=== PATIENT | female | born 1995 | race Hispanic/Latino ===

== ENCOUNTER 2016-12-27 12:48 | Inpatient (IN) | payer OTHER ==
[~2016-12-27] VITALS: Ht 154.9 cm; Wt 45.7 kg
[~2016-12-27 12:48] MED LIST: Ibuprofen PO; PREN-99 PO
[2016-12-27 13:35] VITALS: BP 148/98; PULSE 78; RESP 16; O2SAT 100
[2016-12-27 14:37] LABS: MONOCYTES % (AUTO) 6.4 % (4-12); Mean Corpuscular Hemoglobin 29.1 pg (27.0-35.0)
[2016-12-27 14:40] LABS: BASOPHILS % (AUTO) 0.2 % (0-3); EOSINOPHILS % (AUTO) 1.8 % (0-5); Mean Corpuscular Volume 84.7 fL (81-100); NEUTROPHILS % (AUTO) 63.9 % (40-74); Platelet Count 78 bil/L (150-400)
--- NOTE | 2016-12-27 15:03 | ED.REPORT ---
HPI-General Illness Date of Service December 27, 2016 ED Provider: Dr. Gonzalez Acevedo M.D. A 21 year old female with a history of hypertension and anemia presents to the ED due to abnormal labs drawn yesterday. The patient was seen by her PCP for symptoms including months of headache, fatigue, tiredness, and intermittent abdominal pain. Her PCP called her today with lab results and referred her to the ED due to poor kidney function. The patient became aware than there was a problem with her kidneys a few months ago. She takes vitamins regularly but denies other daily medications. The patient denies other symptoms. Nursing Notes Stated Complaint: KIDNEY ISSUE Chief Complaint: General Complaint Nursing Notes Reviewed: Yes Allergies: Coded Allergies: No Known Allergies (Verified Allergy, Unknown, 12/27/16) Scheduled Vits #90/Iron Fum/FA ( Formula Tablet) 1 Each Tablet 1 EACH PO DAILY General Time Seen by MD: 15:03 Chief Complaint Other (Abnormal Labs) Hx Obtained From: Patient Arrived By: Walk-in Sudden in Onset?: Yes Onset Occurred: Onset unknown (Labs drawn yesterday) Symptom Duration: Since onset Location: : Abdomen: Head Quality: Aching, Painful Severity: Current: Moderate Severity: Maximum: Moderate Pertinent Negative: Relieved by nothing Recent Healthcare: Recent doctor visit Similar Sx Previous: Yes Past Medical History Past Medical History Hypertension Anemia Past Surgical History denies Smoking History Never Smoker Social History Alcohol Use: Denies alcohol use Drug Use: Denies drug use Other Social History: Occupation no work or school Ambulatory Status Independent Review of Systems + Labs indicating poor kidney function Full Review of Systems Constitutional: Reports: Fatigue, Denies: Fever Respiratory: Denies: Non-productive cough, Shortness of breath GI: Reports: Abdominal pain (Intermittent), Denies: Diarrhea, Vomiting Neurologic: Reports: Headache Complete sys rev & neg: except as marked. Physical Exam Vital Signs Vital Signs Date Time Temp Pulse Resp B/P Pulse Ox O2 Delivery O2 Flow Rate FiO2 12/27/16 13:35 36.7 78 16 148/98 100 Initial VS: Reviewed Head / Eyes: Atraumatic, Normocephalic ENT: Conjunctiva normal, No scleral icterus Neck: Supple, Full range of motion Respiratory: Breath sounds normal, Clear to auscultation, No respiratory distress Cardiovascular: Regular rate & rhythm, Heart sounds normal Skin: Warm, Dry, No cyanosis Neurologic: Alert, Oriented, Nonfocal Psychiatric: Mood/affect normal, Behavior normal, Normal thought content General/Constitutional: Awake, Alert, No acute distress Interpretation & Diagnostics US RENAL SONOGRAM: IMPRESSION: 1. Bilateral renal atrophy, cortical thinning as well as increased renal cortical echogenicity suggesting medical renal disease. No hydronephrosis is seen. Dictated by: Be Harrell RRFausto Interpreted: Rose Easley MD on 12/27/2016 at 16: 39 URINE : Negative URINE DIPSTICK: Bedside Urine Specific Clarkson * 1.000 Bedside Urine pH * 5 Bedside Urine Leukocyte Esterase * Negative Bedside Urine Nitrite * Negative Bedside Urine Protein * +++ (500) Bedside Urine Glucose * Normal Bedside Urine Ketones * Negative Bedside Urine Urobilinogen * Normal Bedside Urine Bilirubin * Negative Bedside Urine Occult Blood * ~ 250 Jose/ml Urine to Lab * Yes Lab Results Interpretation Result Diagram: 12/27/16 1433 12/27/16 1433 Test 12/27/16 14:33 12/27/16 14:34 12/27/16 15:24 White Blood Count 5.0th/mm3 (3.8-10.1) Red Blood Count 2.61mil/mm3 (3.90-5.20) Hemoglobin 7.6g/dL (12.0-15.6) Hematocrit 22.1% (35.0-46.0) Mean Corpuscular Volume 84.7fL (81-100) Mean Corpuscular Hemoglobin 29.1pg (27.0-35.0) Mean Corpuscular Hemoglobin Concent 34.4% (32.0-37.0) Red Cell Distribution Width 13.0% (12.3-15.4) Platelet Count 78bil/L (150-400) Neutrophils (%) (Auto) 63.9% (40-74) Lymphocytes (%) (Auto) 27.5% (14-46) Monocytes (%) (Auto) 6.4% (4-12) Eosinophils (%) (Auto) 1.8% (0-5) Basophils (%) (Auto) 0.2% (0-3) Sodium Level 138mEq/L (134-144) Potassium Level 5.7mEq/L (3.5-5.2) Chloride Level 100mEq/L (97-108) Carbon Dioxide Level 19mmol/L (18-29) Blood Urea Nitrogen 99mg/dL (6-20) Creatinine 6.79mg/dL (0.57-1.00) Estimat Glomerular Filtration Rate 11mL/min (>59) Glucose Level 94mg/dL (60-99) Calcium Level 7.1mg/dL (8.5-10.1) Phosphorus Level 5.8mg/dL (2.5-4.9) Total Bilirubin 0.3mg/dL (0.0-1.2) Aspartate Amino Transf (AST/SGOT) 20U/L (0-50) Alanine Aminotransferase (ALT/SGPT) 18U/L (0-32) Alkaline Phosphatase 82U/L (25-150) Total Protein 6.7g/dL (6.4-8.4) Albumin 4.1g/dL (3.4-5.0) Thyroid Stimulating Hormone (TSH) 1.820uIU/mL (0.450-4.500) Hold [place] Top Tube Received (Received) Urine Color Straw (YELLOW) Urine Appearance Hazy (CLEAR,HAZY) Urine pH 6.0 (5.0-8.0) Urine Specific Clarkson 1.010 (1.003-1.035) Urine Protein 100mg/dL (NEG,TRACE) Urine Glucose (UA) Negativemg/dL (NEGATIVE) Urine Ketones Negativemg/dL (NEGATIVE) Urine Occult Blood Moderate (NEGATIVE) Urine Nitrite Negative (NEGATIVE) Urine Bilirubin Negative (NEGATIVE) Urine Urobilinogen 0.2mg/dL (NORMAL) Urine Leukocyte Esterase Negative (NEGATIVE) Urine RBC 3-10/hpf (0-2) Urine WBC 0-5/hpf (0-5) Urine Epithelial Cells None/hpf (NONE-MOD) Urine Crystals None seen (NONE SEEN) Urine Bacteria Few/hpf (NONE-FEW) Urine Hyaline Casts None/lpf (NONE) Urine Granular Casts None seen (NONE SEEN) Urine Waxy Casts None seen (NONE SEEN) Urine Red Blood Cell Casts None seen (NONE SEEN) Urine White Blood Cell Casts None seen (NONE SEEN) Urine Mucus None seen (None Seen) Urine Trichomonas None seen (NONE SEEN) Urine Yeast None (NONE SEEN) Urinalysis Comment None Urine Culture Reflexed Not indicated Re-Eval/Medical Decision Time of Eval: 18:11 Patient Status: Condition improved Re-Evaluation/Progress Note: Dr. Cates evaluated patient. He discussed with her lab and US results, diagnosis, and plan for admit. Patient agrees with plan for care and all questions were addressed. Consultation #1: Referral / Consult Name: Everardo Taylor DO Consulted With: Nephrology Call Returned at: 16:20 Pharmacy Manager: Will see patient, Agrees with eval, Agrees with plan Consultation #2: Referral / Consult Name: Everardo Taylor DO Consulted With: Nephrology Call Returned at: 17:20 Pharmacy Manager: Agrees with eval, Agrees with plan Note: Recommends admit. Consultation #3: Referral / Consult Name: Misbah Lau MD Consulted With: Hospitalist Call Returned at: 18:09 Pharmacy Manager: Agrees with eval, Agrees with plan, Accepts admit Consultation #4: Referral / Consult Name: Anjel Hightower MD Consulted With: Hospitalist Pharmacy Manager: Accepts admit Counseled Regarding: Diagnosis, Lab results, Need for admission Discharge & Departure Primary Impression: Acute renal failure Acute renal failure type: unspecified Qualified Code: N17.9 - Acute kidney failure, unspecified Disposition: ADMITTED TO HOSPITAL Discharge Condition All VS Reviewed: Yes Condition: Improved Referrals: Myrtle Bee MD (PCP) Coronaiblorenza Attestation Portions of this note were transcribed by Danielle Gautam. I, Dr. Acevedo, personally performed the history, physical exam, and medical decision-making; I reviewed and confirmed the accuracy of the information in the transcribed note. Signed by: Katarina Gupta, 12/27/2016, 18:15 copies to: Myrtle Bee MD, Kirk H MD December 27, 2016 15:03 DANIELLE GAUTAM December 27, 2016 15:34
[2016-12-27 15:29] LABS: Phosphorus 5.8 mg/dL (2.5-4.9)
[2016-12-27 15:37] LABS: APPEARANCE,URINE HAZY (CLEAR,HAZY); COLOR,URINE STRAW (YELLOW)
[2016-12-27 15:39] LABS: OCCULT BLOOD,URINE MODERATE (NEGATIVE)
[2016-12-27 15:40] LABS: UROBILINOGEN,URINE 0.2 mg/dL (NORMAL)
--- NOTE | 2016-12-27 16:41 | DRSVH ---
PROCEDURE: US RENAL SONOGRAM INDICATIONS: renal failure TECHNIQUE: Real-time scanning was performed of the kidneys and bladder, with image documentation. COMPARISON: None. FINDINGS: Kidneys: Kidneys are normal in size. Right kidney measures 8.7 cm long; left kidney measures 8.0 cm long. Right renal cortical thickness is 0.8 cm; left renal cortical thickness is 1.0 cm. Renal cor tical echotexture is increased bilaterally. No hydronephrosis or nephrolithiasis. No suspicious marie id mass lesions. Bladder: Pre-void bladder volume is 99 mL. Post-void residual is 86 mL. Pre-void images demonstrat e no intraluminal masses or stones. On pre-void images, neither ureteral jets are noted with color D oppler interrogation. (Of note, ureteral jets may not be detectable in up to 25% of cases due to ins ufficient differences in specific gravity between ureteral and bladder urine). Miscellaneous: No free pelvic fluid. IMPRESSION: 1. Bilateral renal atrophy, cortical thinning as well as increased renal cortical echogenicity sugges ting medical renal disease. No hydronephrosis is seen. Dictated by: Be BANGURA Interpreted: Rose Easley MD on 12/27/2016 at 16:39 Transcribed by: GREGORIO on 12/27/2016 at 16:41 Approved by: Rose Easley M.D. on 12/27/2016 at 17:53
[2016-12-27] MEDS ORDERED: PREN-100 PO (17:37)
--- NOTE | 2016-12-27 18:48 | CONS ---
[address] [address] CONSULTATION REPORT PATIENT: KAELYN MCKENZIE : 1995 MR#: [id number] ADMIT: 12/27/2016 JOB ID: [id number] DATE OF SERVICE: 12/27/2016 HISTORY: The patient is a very pleasant 21-year-old, female who was sent to the emergency department for acute uremic symptoms. Renal consultation is being sought for further evaluation of her elevated BUN and creatinine. Earlier today, her physician Dr. Bee from [facility] contacted me with concern of her markedly elevated creatinine at 6.5. After discussion, I recommended that the patient be sent over here through the emergency department for further and emergent evaluation. Her last health care contact until recently was 2-1/2 years ago when she had an uncomplicated . She stated during the which she is a G1, P1, there was no history of preeclampsia, eclampsia, hypertension, or diabetes. She had a spontaneous vaginal delivery with a healthy male child. Since that time, she states that she has been doing well until several months ago. At that time, she states that she had began to have some intermittent fatigue, dyspnea on exertion, progressive anorexia, nausea without vomiting, and increasing pruritus. She was seen at [facility] several months ago and blood work from December 04 revealed a creatinine of 3.65. She was placed on metoprolol and vitamin D and was referred for renal evaluation. She was seen back at [facility] yesterday and at that time her blood work revealed a creatinine of 6.5, and our office was contacted. She denies a history of any prior medical problems or any prior renal problems. She does relate this history of longstanding progressive fatigue, anorexia, intermittent insomnia, decreased taste for food, pruritus, nausea without vomiting. She also states she has had somewhat of an ill-defined, sharp epigastric abdominal pain which is intermittent in nature and she cannot relate whether it is aggravated or relieved by anything. This is not associated with any other symptoms. She also states that she has been having considerable bruising in the last month or so and intermittent polyarthralgias, however, she denies any rash or perioral ulcerations. She has had some ill-defined sharp intercostal chest pain which is somewhat aggravated by deep inspiration. There is not an exertional component, and the pain is nonradiating. She denies any travel outside of this area for greater than 6-12 months. She does state that she takes a medication from [place] for frequent headaches, and she has taken this for a number of years. We are currently searching the database to see what this is specifically. She also states that she has frequent chills but denies any fever, jaundice, or polyuria or polydipsia. She denies any prior history of any renal problems and no history of any recent proteinuria, recurrent urinary tract infections or renal lithiasis. There is no history of any prior hepatitis. She denies any recent infections, however, she states that three months ago she had a sore throat, and took some type of antibiotic with some improvement. PAST MEDICAL HISTORY: Remarkable for recent onset hypertension and chronic kidney disease. Otherwise, she denies a history of any neurological problems, stroke, seizure, asthma, tuberculosis, rheumatic fever, hepatitis, thyroid illness, or food intolerance. PAST SURGICAL HISTORY: Unremarkable. ALLERGIES: She is not allergic to any food or any medications. SOCIAL HISTORY: She does not use alcohol, tobacco or illicit drugs. She is normally in good health and lives with her family and is able to provide for her child. CURRENT MEDICATIONS: Include metoprolol, vitamin D, and vitamins. FAMILY HISTORY: Negative for any history of any hypertension or renal disease. There is no history in the family of any lupus or rheumatoid arthritis. PHYSICAL EXAMINATION: Revealed a small, thin and pale, 21-year-old, female who was alert and oriented x3 and was able to answer questions through an foam tank laminator. Blood pressure at time of my evaluation and by my reading was 144/100 with a pulse rate of 86. HEENT examination is remarkable for pale sclerae. Cornea and conjunctivae were within normal limits as were the extraocular muscles and pupils. Funduscopic examination was unremarkable. Examination of her throat showed normal tonsillar architecture without injection, erythema, or exudate. Neck is supple without adenopathy, thyromegaly or jugular venous distention. Lungs are clear to auscultation. Heart was regular and rhythmical with a soft systolic murmur. There was no rub noted. Abdomen was soft with somewhat diminished bowel sounds. There was diffuse nonfocal tenderness to palpation which seemed to be worse in the right upper quadrant. There was no rebound, guarding, or hepatosplenomegaly. Extremities do not show any evidence of any clubbing, cyanosis, edema, or half and half nails. Skin turgor was good. There was no evidence of any rashes. LABORATORY EXAMINATION: On admission, her white count is 5.0, hemoglobin 7.6, hematocrit 22.1, platelet count is low at 78,000, differential was normal. Urinalysis showed a specific gravity 1.010, pH was 6. Tests for protein and occult blood were positive. She had 3-10 RBCs per high-power field and 0-5 WBCs per high-power field. Bacteria were not seen. Her sodium was 138, potassium 5.8, chloride of 100, bicarbonate 19, BUN and creatinine were 99 and 6.79 and calcium was 7.6 with a phosphorus of 5.8. Liver function studies were normal. I have reviewed her renal ultrasound which showed relatively normal-sized kidneys, however, there was diffuse echogenicity in both kidneys. IMPRESSION: 1. End-stage renal disease, etiology unknown. 2. Hypertension with hypertensive heart disease and hypertensive nephrosclerosis. 3. Anemia secondary to chronic kidney disease. 4. Metabolic acidosis with a type 4 renal tubular acidosis. 5. Thrombocytopenia. 6. Proteinuria with microscopic hematuria. RECOMMENDATION: I would like to get an echocardiogram on her along with a urine protein creatinine ratio, an DOMINIQUE and an Justice's TTS 13 titer for the possibility of TTP, although I doubt this. I would also like to get a sed rate, C3, C4, uric acid, and iron studies. Once again, I would like to thank you for allowing me to participate in the care of this rather unfortunate patient, I will be following her closely with you.
[2016-12-27 19:40] VITALS: BP 153/10; PULSE 74; RESP 16; O2SAT 100
[2016-12-27] MEDS ORDERED: AMLO5TAB2 PO (20:17)
[2016-12-27] MEDS ORDERED: CHOL100043 PO (20:17)
[2016-12-27 20:23] VITALS: BP 141/82; PULSE 81; RESP 18; O2SAT 100
--- NOTE | 2016-12-27 20:25 | NUR ---
Admission to [facility] Room 2005 Pt and a friend arrived to the room at approximately 2024. The pt was on the gurney and was able to independently transfer self from gurney to the bed without any issues. Pt's VSS with the exception that the pt's BP was elevated with a systolic in the 140s. Pt's skin looks healthy. Pt is Kinyarwanda speaking only.
[2016-12-27] MEDS ORDERED: Polyethylene Glycol (PEG) 17 Gm Powder PO PRN (21:10)
[2016-12-27] MEDS ORDERED: Alum-Mag Hydrox-Simeth 30 mL Suspension PO PRN (21:10)
--- NOTE | 2016-12-27 21:51 | PCM.HPMED ---
Subjective Date of Service December 27, 2016 Primary Provider: Admitting Physician: Anjel Hightower MD Primary Care Physician: Myrtle Bee MD Attending Physician: Anjel Hightower MD Chief Complaint: Headache, fatigue, tiredness and intermittent abdominal pain History of Present Illness: The patient is a 21-year-old female history of hypertension and anemia who presented to [facility] emergency department due to abnormal labs drawn yesterday the day prior to admission. The patient was seen by her primary care physician Rohit Iraheta M.D. for symptoms including months of headache, fatigue, tiredness, and intermittent abdominal pain. Her PCP called her today the day of admission with lab results and referred her to [facility] emergency department due to poor kidney function. The patient became aware that there is a problem with her kidneys a few months ago. She takes vitamins regular but denies other daily medications. However amlodipine is on her medication list as well as vitamin D3 and reportedly she is taking metoprolol in the past. Patient was evaluated in the emergency room by Dr. Gonzalez Acevedo and her BUN was 99 and creatinine was 6.79. Dr. Taylor was constant acted and he recommended that the patient be admitted to the hospital service and he would consult for nephrology consultation. Patient was therefore admitted to the hospital service for further evaluation and treatment. Review of Systems: General: Patient has been complaining of generalized malaise, headache, fatigue and intermittent abdominal pain. HEENT: Patient has a headache, patient has no diplopia, patient has no changes in vision. Patient has no problems with her ears, nose or throat. Patient has no known dental problems. Patient has no pharyngitis or history of thrush. Neck: Patient has no stiffness in the neck. Patient has no lymphadenopathy. Patient has no other problems with her neck. Pulmonary: Patient has no shortness of breath, no cough, no expectoration of sputum. Patient has no pleurisy. Patient has no chest pain. Patient has no history of asthma or COPD. Cardiovascular: Patient has no chest pain. Patient has no history of heart murmur. Patient has no palpitations. Patient has no history of myocardial infarction. Patient has no history of coronary artery disease. Patient does have a history of hypertension. Gastrointestinal: Patient has no history of hepatitis A, B or C. Patient has no history of peptic ulcer disease. Patient has no history of gastroesophageal reflux disease. Patient has no history of nausea, vomiting, or diarrhea. Patient has no history of hematemesis, hematochezia, or melena. Patient has no history of colitis. Renal: Patient has a history of known kidney problems. Genitourinary: Patient has no history of dysuria, frequency, or incontinence. Patient has no previous history of genitourinary problems. Musculoskeletal: Patient has no history of muscular skeletal problems. Neurologic: Patient has no history of stroke, no history of seizure, no history of TIA. Psychiatric: Patient has no history of psychiatric problems. The remainder of the entire review of systems was reviewed with patient and is as mentioned above otherwise negative. Allergies Coded Allergies: No Known Allergies (Verified Allergy, Unknown, 12/27/16) PMH Hypertension Anemia Kidney problems Surgical History The patient denies any surgery. Family History For family history is not available at this time. Social History Hx Alcohol Use: No Hx Substance Use: No Smoking Status: Never Smoker Living Arrangement: with Family Additional Information Patient is 1 para 1. She is and has one child. She does not currently employed and is not currently attending school. Exam Vital Signs Vital Sign - Last Date Time Temp Pulse Resp B/P Pulse Ox O2 Delivery O2 Flow Rate FiO2 12/27/16 20:23 36.9 81 18 141/82 100 Room Air Exam General: Patient appears tired and fatigued. Otherwise she is lying supine in bed in no apparent distress HEENT: Head is atraumatic and normocephalic. Eyes: Pupils are equally round and reactive to light and accommodation. Extraocular muscles are intact. Sclera are white, anicteric. Subconjunctival mucosa is pink. Ears and nose are unremarkable. Oropharynx: There is no mucosal lesions, there is no thrush, there is no pharyngitis. Neck: Is supple, there are no nodes, or masses or tenderness. Chest: Is clear to auscultation and percussion. There are no rales, rhonchi, wheezes or rubs. Heart: Rate, rhythm is regular. There is no murmur, rub or gallop. Abdomen: Good bowel sounds are present. Abdomen is soft, nontender, no organomegaly or masses were appreciated. Extremities: Are symmetrical and well perfused. There is no edema, there is no cellulitis, no rash. Neurologic: There are no focal neurological deficits. Cranial nerves II through XII are intact. There are no sensory or motor deficits. Psychiatric: Patients mood is calm and shows no sign of agitation. Genital: Deferred Rectal: Deferred Lab and Diagnostics Result Diagram: 12/27/16143212/27/161432 Assessment & Plan The patient is a pleasant 21-year-old female with history of hypertension and anemia who was sent to [facility] emergency room by her primary care physician due to a markedly elevated BUN and creatinine after patient visited her PCP complaining of months of headache, fatigue, tiredness and intermittent abdominal pain. # Acute renal failure on chronic kidney disease, present of the tendon admission and ongoing. - Etiology is uncertain, however renal disease appears to be at an end-stage - Patient has known hypertension and may have hypertensive nephrosclerosis. - Rule out toxic effects of medications that she has been taking from [facility]. - Rule out other -such as autoimmune disease - Dr. Everardo Taylor has been consulted and appreciate his time and expertise. His recommendations are as follows: "I would like to get an echocardiogram on her along with a urine protein creatinine ratio, an DOMINIQUE and an Justice's TTS 13 titer for the possibility of TTP, although I doubt this. I would also like to get a sed rate, C3, C4, uric acid, and iron studies. # Anemia of chronic kidney disease, present at the time of admission and ongoing. - Treatment as per Dr. 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 - Recommendations as per Dr. Taylor. # Headaches, general malaise, present at the time of admission and ongoing. This is likely secondary to the above. - Dr. Taylor to consider hemodialysis in a.m. Disposition: Patient will likely be here more than 2 midnights for the evaluation and the treatment of the above complicated conditions, therefore patient will be admitted as an inpatient. Pain Evaluation: Adequate Pain Control GI Prophylaxis: Not indicated VTE Prophylaxis: Sub-Q Heparin (Unfractionated) Resuscitation Status: CPR: Attempt Resuscitation Anjel Hightower MD December 27, 2016 21:51
[2016-12-28] VITALS (10 sets, daily range): BP systolic 113–136; BP diastolic 71–94; PULSE 76–87; RESP 14–18; O2SAT 80–100
[2016-12-28] MEDS: Sodium Chloride LOK Flush 10 mL Syringe IVFLUSH SCH ×4 (00:30→21:41)
[2016-12-28 03:30] LABS: Mean Corpuscular Hemoglobin 29.2 pg (27.0-35.0); Mean Corpuscular Volume 84.7 fL (81-100); NEUTROPHILS % (AUTO) 51.3 % (40-74); Platelet Count 74 bil/L (150-400)
[2016-12-28 03:31] LABS: BASOPHILS % (AUTO) 0.3 % (0-3); EOSINOPHILS % (AUTO) 3.2 % (0-5); MONOCYTES % (AUTO) 8.2 % (4-12)
[2016-12-28 03:46] LABS: Magnesium 2.2 mg/dL (1.6-2.6); Phosphorus 5.1 mg/dL (2.5-4.9)
[2016-12-28 05:09] LABS: Hepatitis A Antibody IgM Negative (Negative); Hepatitis B Core Antibody IgM Negative (Negative)
[2016-12-28] MEDS: Multivit-Miner-Folic Acid-Iron Tablet PO SCH (08:20)
[2016-12-28 13:08] LABS: RNP Antibodies <0.2 AI (0.0-0.9)
--- NOTE | 2016-12-28 13:13 | NUR ---
Social Work: Screen D: Per EMR review, pt is a 21 year old female admitted for Acute Renal Failure. Pt is [facility]. PCP is Myrtle Bee MD. NOK is Keturah Aguero, sister. Advanced directives information provided to pt as she has not yet completed them. Readmit score is low, 0/8. PATIENT ACCESS MANAGER met with pt at bedside. Sw role explained. Pt lives in [place] with family. She is I at baseline. Pt will be a permanent dialysis patient and is working with nephrology on this. Pt identifies no current discharge needs. Contact info provided on pt's board. A: Pt who is I at baseline. P: Anticipate pt to discharge home when medically stable; PATIENT ACCESS MANAGER to continue to follow if needs arise. ANUM Jenkins
--- NOTE | 2016-12-28 15:00 | PCM.PNNEPH ---
Subjective Date of Service December 28, 2016 Subjective The patient is unchanged from yesterday. She states that she rested fairly well last night and denies any worsening of her nausea, vomiting, or pruritus. I have reviewed her available labs and have discussed this with her through an historic interpreter. Ultrasound showed relatively normal sized kidneys however there was diffuse echogenicity consistent with chronic kidney disease. Echocardiogram is pending at time of this dictation. Her urine protein creatinine ratio is 5.3 consistent with 5 g of protein. However her C4 was normal. Her sedimentation rate was 63, rheumatoid factor was negative uric acid was 10.1, phosphorus 5.1, PTH was 214 function studies were normal and hepatitis profile was negative. LDH level was 357 and her haptoglobin is pending at time of this dictation. Her transferrin saturation was 21%. This morning her hemoglobin is 6.9, sodium is 138, potassium 4.8, chloride 101, bicarbonate 20, BUN and creatinine were 99 and 6.88. Exam Vital Signs Vital Sign - Last Date Time Temp Pulse Resp B/P Pulse Ox O2 Delivery O2 Flow Rate FiO2 12/28/16 13:37 37.0 80 18 136/80 100 Room Air Intake and Output 12/27/16 12/27/16 12/28/16 Cumulative From/Thru 15:00 23:00 07:00 12/27/16 13:35 - 12/28/16 05:38 Intake Total 440 ml 440 ml Output Total 500 ml 500 ml Balance -60 ml -60 ml Intake Oral 440 ml 440 ml Output Urine Total 500 ml 500 ml # Bowel Movements 0 0 Exam HEENT examination is remarkable for pale sclera. Neck is supple without adenopathy, thyromegaly, or jugular venous distention. Lungs are clear to auscultation. Heart is regular rhythmical with a soft systolic murmur. Soft without any tenderness, rebound, guarding, masses, or hepatosplenomegaly. Extremities symmetric 20 evidence of any clubbing, cyanosis, or edema. Skin turgor is good and is no evidence of any rashes. Lab and Diagnostics Result Diagram: 12/28/16 0425 12/28/16 0300 Plan Impression Impression #1 end-stage renal disease most likely secondary to some type of connective tissue disorder. #2 anemia and thrombocytopenia which may be due to an ongoing subacute hemolytic microangiopathic process versus secondary to connective tissue disorder. #3 hypertension with hypertensive heart disease and hypertensive nephrosclerosis number for nephrotic range proteinuria #5 hyperuricemia #6 secondary hyperparathyroidism due to chronic kidney disease Recommendations #1 I have had a long discussion with the patient through an historic interpreter as to the plans for initiation of dialysis. I would like to avoid any type of transfusion at this time as I do not want to sensitize her androgen system and workup for transplant. We will have our nephrology education personnel speak with her. In the meantime I will start her on allopurinol 100 mg daily Renvela 800 mg 3 times a day with meals and further recommendation based on her all remaining tests to be done. Everardo Taylor DO December 28, 2016 15:00
--- NOTE | 2016-12-28 15:11 | DRSVH ---
[facility] [address] [place] [place] [address] Echocardiogram Report Name: KAELYN MCKENZIE Study Date: 12/28/2016 Height: 61 in Hospital Exam Location: [facility] Weight: 93 lb Gender: Female BSA: 1.4 m2 : 1995 Age: 21 yrs BP: 119/75 mmHg Reason For Study: Hypertension Ordering Physician: Nataly Taylorformed By: Cathryn Spence Interpretation Summary The left ventricle is normal in size, wall thickness, and systolic function without any focal wall motion abnormalities. The ejection fraction is estimated to be 55-60%. The right ventricle is normal in size and function. The right ventricular systolic pressure is estimated at 34 mmHg assuming a right atrial pressure of 8 mm Hg. The left atrium is mildly dilated. Right atrial size is normal. There is no significant valvular heart disease. The aortic root is normal size. Procedure: A two-dimensional transthoracic echocardiogram with color flow and Doppler was performed. The study quality was technically good. There is no prior echocardiogram noted for this patient. The patient was in normal sinus rhythm during the exam. Left Ventricle: The left ventricle is normal in size, wall thickness, and systolic function without any focal wall motion abnormalities. The ejection fraction is estimated to be 55-60%. Assessment of diastolic parameters indicates normal left ventricular diastolic function and normal filling pressures. Right Ventricle: The right ventricle is normal in size and function. Atria: The left atrium is mildly dilated. Right atrial size is normal. There is no Doppler evidence for an interatrial shunt. Mitral Valve: The mitral valve is normal in structure and function. There is trace mitral regurgitation. Aortic Valve: The aortic valve is normal in structure and function. No aortic regurgitation is present. Tricuspid Valve: The tricuspid valve is normal in structure and function. There is a trace or physiologic amount of tricuspid regurgitation. The right ventricular systolic pressure is estimated at 34 mmHg assuming a right atrial pressure of 8 mm Hg. Pulmonic Valve: The pulmonic valve is normal in structure and function. There is no pulmonic valvular regurgitation. There is no significant valvular heart disease. Great Vessels: The aortic root is normal size. The ascending aorta is normal in size. The aortic arch is normal in size. The IVC is of normal diameter and collapses less than 50% with a sniff. This suggests a right atrial pressure of 8 mm Hg. Pericardium/ Pleura There is no pericardial effusion. MMode/2D Measurements & Calculations LVIDd: 4.4 cm LA dimension: 3.3 cm RA long axis LVOT diam: 1.7 cm LVIDs: 3.4 cm AoV Opening FS: 23.7 % LA A2 area: 15.3 cm RA area EPSS: 0.41 cm LA A4 area: 21.1 cm Ao root diam IVSd: 0.71 cm LA length (vol) : 13.8 cm LVPWd: 0.87 cm RA vol Aortic Jxn: 2.0 cm LA vol: 53.0 ml : 41.8 ml asc Aorta Diam LA vol index RA : 30.7 mm2 Ao Arch Diam (Prox Trans): 2.1 cm IVC diam: 1.6 cm LV cavazos. diameter/BSA LV sys. diameter/BSA RVD1 (basal) RVD2 (mid): 2.6 cm (cm/m^2): 3.2 (cm/m^2): 2.5 Doppler Measurements & Calculations Ao V2 max MV E max douglas MV E/A: 1.2 TR max douglas : 155.0 cm/sec : 102.6 cm/sec Med Peak E' Douglas : 254.9 cm/sec Ao max PG MV A max douglsa TR max PG : 9.6 mmHg : 89.1 cm/sec E/E' med: 11.6 : 26.0 mmHg Ao mean PG MV P1/2t: 72.7 msec Lat Peak E' Douglas PA V2 max : 102.9 cm/sec LVOT Max Douglas E/E' lat: 7.9 PA mean PG : 115.2 cm/sec E/e' average: 9.8 PA Accel Time MILO(I,D): 1.8 cm : 0.13 sec sev ratio MV dec time MV P1/2t max douglas Ao V2 mean LV V1 max PG : 0.25 sec : 103.5 cm/sec MVA(P1/2t): 3.0 cm2 Ao V2 VTI: 31.6 cm LV V1 VTI MILO(V,D): 1.7 cm2 : 25.2 cm PA V2 mean MILO indexed to BSA : 73.0 cm/sec (cm^2/m^2): 1.4 Reading Physician:MARCO A
--- NOTE | 2016-12-28 16:37 | NUR ---
Renal/Medication Education/Pain/Urine output Pt has been educated on medications with full time staff interpreter in room. She was instructed on Allupurinol and Sevelamar Carbonate. Renal diet information has been printed up and given to educate on appropriate food choices. Pt c/o headache and was administered 650mg PO Tylenol with results. It was discovered that pt's family had emptied the hat collecting pt's urine. Pt stated that she had voided twice "mucho" during shift today.
--- NOTE | 2016-12-28 19:45 | PCM.PNMED ---
Subjective Date of Service December 28, 2016 Subjective Patient has no new complaints. She appears a little bit brighter and more responsive today. She has no pain except her peripheral IV site in the left antecubital fossa is bothering her some. Exam Vital Signs Vital Sign - Last Date Time Temp Pulse Resp B/P Pulse Ox O2 Delivery O2 Flow Rate FiO2 12/28/16 16:59 36.8 85 16 127/83 100 Room Air Intake and Output 12/27/16 12/27/16 12/28/16 Cumulative From/Thru 15:00 23:00 07:00 12/27/16 13:35 - 12/28/16 05:38 Intake Total 440 ml 440 ml Output Total 500 ml 500 ml Balance -60 ml -60 ml Intake Oral 440 ml 440 ml Output Urine Total 500 ml 500 ml # Bowel Movements 0 0 Exam General: Patient appears more comfortable today and less fatigue. She appears brighter and in better spirits. HEENT: Head is atraumatic and normocephalic. Eyes: Pupils are equally round and reactive to light and accommodation. Extraocular muscles are intact. Sclera are white, anicteric. Subconjunctival mucosa is slightly pale. Ears and nose are unremarkable. Oropharynx: There is no mucosal lesions, there is no thrush, there is no pharyngitis. Mucosa slightly pale. Neck: Is supple, there are no nodes, or masses or tenderness. Chest: Is clear to auscultation and percussion. There are no rales, rhonchi, wheezes or rubs. Heart: Rate, rhythm is regular. There is no murmur, rub or gallop. Abdomen: Good bowel sounds are present. Abdomen is soft, nontender, no organomegaly or masses were appreciated. Extremities: Are symmetrical and well perfused. There is no edema, there is no cellulitis, no rash. Neurologic: There are no focal neurological deficits. Cranial nerves II through XII are intact. There are no sensory or motor deficits. Psychiatric: Patients mood is calm and shows no sign of agitation. Genital: Deferred Rectal: Deferred Lab and Diagnostics Result Diagram: 12/28/16 0425 12/28/16 0300 X-Rays, CTs and MRIs PROCEDURE: US RENAL SONOGRAM INDICATIONS: renal failure TECHNIQUE: Real-time scanning was performed of the kidneys and bladder, with image documentation. COMPARISON: None. FINDINGS: Kidneys: Kidneys are normal in size. Right kidney measures 8.7 cm long; left kidney measures 8.0 cm long. Right renal cortical thickness is 0.8 cm; left renal cortical thickness is 1.0 cm. Renal cortical echotexture is increased bilaterally. No hydronephrosis or nephrolithiasis. No suspicious solid mass lesions. Bladder: Pre-void bladder volume is 99 mL. Post-void residual is 86 mL. Pre- void images demonstrate no intraluminal masses or stones. On pre-void images, neither ureteral jets are noted with color Doppler interrogation. (Of note, ureteral jets may not be detectable in up to 25% of cases due to insufficient differences in specific gravity between ureteral and bladder urine). Miscellaneous: No free pelvic fluid. IMPRESSION: 1. Bilateral renal atrophy, cortical thinning as well as increased renal cortical echogenicity suggesting medical renal disease. No hydronephrosis is seen. Dictated by: Be BANGURA Interpreted: Rose Easley MD on 12/27/2016 at 16: 39 Transcribed by: GREGORIO on 12/27/2016 at 16:41 Approved by: Rose Easley M.D. on 12/27/2016 at 17:53 Cardiac Echo Impressions Echocardiogram Report Name: KAELYN MCKENZIE Study Date: 12/28/2016 Height: 61 in Hospital Exam Location: [facility] Weight: 93 lb Gender: Female BSA: 1.4 m2 : 1995 Age: 21 yrs BP: 119/75 mmHg Reason For Study: Hypertension Ordering Physician: Nataly Taylorformed By: Cathryn Spence Interpretation Summary The left ventricle is normal in size, wall thickness, and systolic function without any focal wall motion abnormalities. The ejection fraction is estimated to be 55-60%. The right ventricle is normal in size and function. The right ventricular systolic pressure is estimated at 34 mmHg assuming a right atrial pressure of 8 mm Hg. The left atrium is mildly dilated. Right atrial size is normal. There is no significant valvular heart disease. The aortic root is normal size. Assessment & Plan The patient is a pleasant 21-year-old female with history of hypertension and anemia who was sent to [facility] emergency room by her primary care physician due to a markedly elevated BUN and creatinine after patient visited her PCP complaining of months of headache, fatigue, tiredness and intermittent abdominal pain. # Acute renal failure on chronic kidney disease, present of the time admission and ongoing. - Etiology is uncertain, however renal disease appears to be at an end-stage( ESRD). - Patient has known hypertension and may have hypertensive nephrosclerosis. 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 - Rule out other -such as autoimmune disease and/or connective tissue disease - Rule out toxic effects of medications that she has been taking from [place]. This is less likely. - Dr. Everardo Taylor has been consulted and appreciate his time and expertise. # Anemia of chronic kidney disease, present at the time of admission and ongoing. -Patient no technically has pancytopenia and will need to follow with serial CBCs. Suspect this may be due to a connective tissue or autoimmune disorder. - Treatment as per Dr. 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 - Recommendations as per Dr. Taylor. # Headaches, general malaise, present at the time of admission and ongoing. This is likely secondary to the above. - Dr. Taylor to consider hemodialysis in a.m. # Secondary hyperparathyroidism due to chronic kidney disease -Renvela 800 mg by mouth 3 times a day with meals has been ordered. # Hyperuricemia secondary to above - Allopurinol 100 mg by mouth daily started. Disposition: Patient will likely be here more than 2 midnights for the evaluation and the treatment of the above complicated conditions, therefore patient will be admitted as an inpatient. Pain Evaluation: Adequate Pain Control GI Prophylaxis: Not indicated VTE Prophylaxis: Sub-Q Heparin (Unfractionated) Resuscitation Status: CPR: Attempt Resuscitation Anjel Hightower MD December 28, 2016 19:45
[2016-12-28] MEDS: Heparin 5,000 Unit/mL Inj SUBQ SCH (21:41)
[2016-12-29] VITALS (11 sets, daily range): BP systolic 116–162; BP diastolic 74–105; PULSE 73–91; RESP 16–20; O2SAT 99–100
--- NOTE | 2016-12-29 05:49 | NUR ---
Pain Pt c/o mild headache at beginning of shift; Tylenol administered with total relief upon reassessment. No further c/o pain. VSS. Pt reported having black stool during shift; no direct observation, pt instructed not to flush further output.
[2016-12-29] MEDS: Multivit-Miner-Folic Acid-Iron Tablet PO SCH (08:04)
[2016-12-29] MEDS: Heparin 5,000 Unit/mL Inj SUBQ SCH ×2 (08:30→20:30)
[2016-12-29 08:59] LABS: BASOPHILS % (AUTO) 0.2 % (0-3); EOSINOPHILS % (AUTO) 2.7 % (0-5); MONOCYTES % (AUTO) 6.6 % (4-12); Mean Corpuscular Hemoglobin 29.5 pg (27.0-35.0); Mean Corpuscular Volume 86.2 fL (81-100); NEUTROPHILS % (AUTO) 45.9 % (40-74); Platelet Count 71 bil/L (150-400)
[2016-12-29] MEDS: Sodium Chloride LOK Flush 10 mL Syringe IVFLUSH SCH ×3 (11:48→22:15)
--- NOTE | 2016-12-29 12:26 | PCM.PNNEPH ---
Subjective Date of Service December 29, 2016 Subjective The patient was seen today along with Dr. Hightower and with the ordinary seaman to assist us in my interview and discussion. Her blood pressure has ranged in the 110 to 1:30 range. Chronic feels well today and offers no complaints. She states that she slept well and not had any problems with headache, shortness of breath, or chest pain. Her appetite is good. Her echocardiogram she has an ejection fraction of 55-60% and some mild left atrial enlargement. There was no evidence of any concentric left ventricular hypertrophy or S change in the ratio. Left atrial enlargement I would be concerned about early diastolic dysfunction. This morning her sodium was 139, potassium 4.6, chloride 100, bicarbonate 18, BUN and creatinine of 111 and 7.26. Her haptoglobin level was less than 10. Peripheral smear along with Dr. Rivera and there are scattered schistocytes and helmet cells noted on the peripheral smear along with moderate spherocytes. Exam Vital Signs Vital Sign - Last Date Time Temp Pulse Resp B/P Pulse Ox O2 Delivery O2 Flow Rate FiO2 12/29/16 11:45 36.7 91 16 135/80 100 Room Air Intake and Output 12/28/16 12/28/16 12/29/16 Cumulative From/Thru 15:00 23:00 07:00 12/27/16 13:35 - 12/29/16 06:58 Intake Total 610 ml 300 ml 1350 ml Output Total 975 ml 1475 ml Balance 610 ml -675 ml -125 ml Intake Oral 610 ml 300 ml 1350 ml Output Urine Total 975 ml 1475 ml # Voids 2 2 # Bowel Movements 1 1 Exam HEENT examination was remarkable for peripheral vascular. Neck is supple without adenopathy, thyromegaly, or jugular venous distention. Lungs are clear to auscultation. Heart is regular with mechanical with a soft systolic murmur. Abdomen is soft without any tenderness or rebound guarding masses or hepatomegaly. I did not appreciate an enlarged spleen during my evaluation today. Extremities did not show any evidence of any clubbing, cyanosis, or edema. Skin turgor is good. Lab and Diagnostics Result Diagram: 12/29/16 0255 12/29/16 025 X-Rays, CTs and MRIs PROCEDURE: US RENAL SONOGRAM INDICATIONS: renal failure TECHNIQUE: Real-time scanning was performed of the kidneys and bladder, with image documentation. COMPARISON: None. FINDINGS: Kidneys: Kidneys are normal in size. Right kidney measures 8.7 cm long; left kidney measures 8.0 cm long. Right renal cortical thickness is 0.8 cm; left renal cortical thickness is 1.0 cm. Renal cortical echotexture is increased bilaterally. No hydronephrosis or nephrolithiasis. No suspicious solid mass lesions. Bladder: Pre-void bladder volume is 99 mL. Post-void residual is 86 mL. Pre- void images demonstrate no intraluminal masses or stones. On pre-void images, neither ureteral jets are noted with color Doppler interrogation. (Of note, ureteral jets may not be detectable in up to 25% of cases due to insufficient differences in specific gravity between ureteral and bladder urine). Miscellaneous: No free pelvic fluid. IMPRESSION: 1. Bilateral renal atrophy, cortical thinning as well as increased renal cortical echogenicity suggesting medical renal disease. No hydronephrosis is seen. Dictated by: Be Harrell RR Interpreted: Rose Easley MD on 12/27/2016 at 16: 39 Transcribed by: GREGORIO on 12/27/2016 at 16:41 Approved by: Rose Easley M.D. on 12/27/2016 at 17:53 Cardiac Echo Impressions Echocardiogram Report Name: KAELYN MCKENZIE Study Date: 12/28/2016 Height: 61 in Hospital Exam Location: [facility] Weight: 93 lb Gender: Female BSA: 1.4 m2 : 1995 Age: 21 yrs BP: 119/75 mmHg Reason For Study: Hypertension Ordering Physician: Nataly Taylorformed By: Cathryn Spence Interpretation Summary The left ventricle is normal in size, wall thickness, and systolic function without any focal wall motion abnormalities. The ejection fraction is estimated to be 55-60%. The right ventricle is normal in size and function. The right ventricular systolic pressure is estimated at 34 mmHg assuming a right atrial pressure of 8 mm Hg. The left atrium is mildly dilated. Right atrial size is normal. There is no significant valvular heart disease. The aortic root is normal size. Plan Impression Impression #1 end-stage renal disease dialysis dependent #2 hemolytic anemia uncertain etiology #2 mixed connective tissue disease #4 anemia secondary to hemolytic anemia and chronic kidney disease which appears to be worsening recommendations #1 go ahead and obtain a direct and indirect Radha test, osmotic fragility test, G6PD, and reticulocyte count. #2Plan for a renal bx Sunday #3 the patient is scheduled to undergo her first dialysis treatment today. 4. 2-1/2 hours on a clear dialyzer, 300 blood flow, 3 potassium, no heparin, no fluid removed. We will schedule for her dialysis treatment tomorrow. Total time spent was 50 minutes. Everardo Taylor DO December 29, 2016 12:25
[2016-12-29] MEDS ORDERED: MethylprednisoLONE Sodium Succinate 62.5 mg/mL 2 mL Inj IVPUSH ONE (12:30)
[2016-12-29] MEDS ORDERED: Acetaminophen IV 1,000 MG in IV Premix 1 EACH IV PRN (12:40)
--- NOTE | 2016-12-29 13:00 | NUR ---
Transfer to [employer] Pt transferred to lab instructor for tunnel cath placement. Report given to Johnnie MCNEILL. Pt to be transferred to [facility] for dialysis immediately after catheter placement
[2016-12-29] MEDS ORDERED: Heparin 1,000 Unit/mL 10 mL Inj ONE (13:16)
[2016-12-29] MEDS ORDERED: Heparin 10,000 Unit/1,000 mL NS Premix IV ONE (13:17)
[2016-12-29] MEDS ORDERED: fentaNYL-PF 50 mCg/mL 2 mL Inj ONE (13:17)
--- NOTE | 2016-12-29 13:27 | DRSVH ---
PROCEDURE: US ABDOMEN INDICATIONS: hemolytic anemia TECHNIQUE: Real-time scanning was performed of the abdominal and retroperitoneal organs, with image documentatio n. COMPARISON: [facility], US, US RENAL, 12/27/2016, 15:18. FINDINGS: Liver length: 13.71 cm Gallbladder Wall Thickness: 1.50 mm CHD: 1.70 mm CBD: 2.30 mm Spleen length: 8.24 cm Right kidney length: 7.58 cm Left kidney length: 7.96 cm Aorta(Proximal): 1.66 cm Aorta(Mid): 1.48 cm Aorta(Distal): 1.34 cm RCIA: 9.20 mm LCIA: 8.80 mm Liver: Liver is normal in size and homogeneous in echotexture. Gallbladder: Normal gallbladder.. Biliary ducts: Intrahepatic bile ducts are non-dilated. Extrahepatic bile duct caliber is normal. Normal is 6-7 mm or less in diameter, or 10 mm or less post-cholecystectomy. Pancreas: Visualized portions of the pancreas are sonographically normal. Spleen: Spleen is normal in size and homogeneous in echotexture. Kidneys: Atrophy of the kidneys bilaterally with increased renal cortical echogenicity. No hydroneph rosis. Aorta: Visualized aorta is normal in caliber at less than 3 cm. Iliacs: Proximal common iliac arteries are normal in caliber at less than 2.5 cm. IVC: Intrahepatic inferior vena cava is patent. Miscellaneous: No free abdominal fluid. IMPRESSION: Abnormal appearance of the kidneys redemonstrated consistent with medical renal disease. Dictated by: Be BANGURA Interpreted: Kaushik Robin MD on 12/29/2016 at 13:25 Transcribed by: LINDSEY on 12/29/2016 at 13:26 Approved by: Kaushik Robin M.D. on 12/29/2016 at 17:12
--- NOTE | 2016-12-29 13:53 | PCM.PNMED ---
Subjective Date of Service December 29, 2016 Subjective The patient was seen with an translator and interpreter and with Dr. Taylor. The patient has no new complaints. She has no shortness of breath, no fever, no chills. However she does still continue to complain of malaise and headache. Exam Vital Signs Vital Sign - Last Date Time Temp Pulse Resp B/P Pulse Ox O2 Delivery O2 Flow Rate FiO2 12/29/16 11:45 36.7 91 16 135/80 100 Room Air Intake and Output 12/28/16 12/28/16 12/29/16 Cumulative From/Thru 15:00 23:00 07:00 12/27/16 13:35 - 12/29/16 06:58 Intake Total 610 ml 300 ml 1350 ml Output Total 975 ml 1475 ml Balance 610 ml -675 ml -125 ml Intake Oral 610 ml 300 ml 1350 ml Output Urine Total 975 ml 1475 ml # Voids 2 2 # Bowel Movements 1 1 Exam General: Patient appears comfortable lying supine in bed. HEENT: Head is atraumatic and normocephalic. Eyes: Pupils are equally round and reactive to light and accommodation. Extraocular muscles are intact. Sclera are white, anicteric. Subconjunctival mucosa is slightly pale. Ears and nose are unremarkable. Oropharynx: There are no mucosal lesions, there is no thrush, there is no pharyngitis. Mucosa is slightly pale. Neck: Is supple, there are no nodes, or masses or tenderness. Chest: Is clear to auscultation and percussion. There are no rales, rhonchi, wheezes or rubs. Heart: Rate, rhythm is regular. There is no new murmur, rub or gallop. Abdomen: Good bowel sounds are present. Abdomen is soft, nontender, no organomegaly or masses were appreciated. Extremities: Are symmetrical and well perfused. There is no edema, there is no cellulitis, no rash. Neurologic: There are no focal neurological deficits. Cranial nerves II through XII are intact. There are no sensory or motor deficits. Psychiatric: Patients mood is calm and shows no sign of agitation. Genital: Deferred Rectal: Deferred Lab and Diagnostics Result Diagram: 12/29/16 0255 12/29/16 025 X-Rays, CTs and MRIs PROCEDURE: US RENAL SONOGRAM INDICATIONS: renal failure TECHNIQUE: Real-time scanning was performed of the kidneys and bladder, with image documentation. COMPARISON: None. FINDINGS: Kidneys: Kidneys are normal in size. Right kidney measures 8.7 cm long; left kidney measures 8.0 cm long. Right renal cortical thickness is 0.8 cm; left renal cortical thickness is 1.0 cm. Renal cortical echotexture is increased bilaterally. No hydronephrosis or nephrolithiasis. No suspicious solid mass lesions. Bladder: Pre-void bladder volume is 99 mL. Post-void residual is 86 mL. Pre- void images demonstrate no intraluminal masses or stones. On pre-void images, neither ureteral jets are noted with color Doppler interrogation. (Of note, ureteral jets may not be detectable in up to 25% of cases due to insufficient differences in specific gravity between ureteral and bladder urine). Miscellaneous: No free pelvic fluid. IMPRESSION: 1. Bilateral renal atrophy, cortical thinning as well as increased renal cortical echogenicity suggesting medical renal disease. No hydronephrosis is seen. Dictated by: Be BANGURA Interpreted: Rose Easley MD on 12/27/2016 at 16: 39 Transcribed by: GREGORIO on 12/27/2016 at 16:41 Approved by: Rose Easley M.D. on 12/27/2016 at 17:53 PROCEDURE: US ABDOMEN INDICATIONS: hemolytic anemia TECHNIQUE: Real-time scanning was performed of the abdominal and retroperitoneal organs, with image documentation. COMPARISON: [facility], US, US RENAL, 12/27/2016, 15:18. FINDINGS: Liver length: 13.71 cm Gallbladder Wall Thickness: 1.50 mm CHD: 1.70 mm CBD: 2.30 mm Spleen length: 8.24 cm Right kidney length: 7.58 cm Left kidney length: 7.96 cm Aorta(Proximal): 1.66 cm Aorta(Mid): 1.48 cm Aorta(Distal): 1.34 cm RCIA: 9.20 mm LCIA: 8.80 mm Liver: Liver is normal in size and homogeneous in echotexture. Gallbladder: Normal gallbladder.. Biliary ducts: Intrahepatic bile ducts are non-dilated. Extrahepatic bile duct caliber is normal. Normal is 6-7 mm or less in diameter, or 10 mm or less post-cholecystectomy. Pancreas: Visualized portions of the pancreas are sonographically normal. Spleen: Spleen is normal in size and homogeneous in echotexture. Kidneys: Atrophy of the kidneys bilaterally with increased renal cortical echogenicity. No hydronephrosis. Aorta: Visualized aorta is normal in caliber at less than 3 cm. Iliacs: Proximal common iliac arteries are normal in caliber at less than 2.5 cm. IVC: Intrahepatic inferior vena cava is patent. Miscellaneous: No free abdominal fluid. IMPRESSION: 1. Abnormal appearance of the kidneys redemonstrated consistent with medical renal disease. Dictated by: Be BANGURA Interpreted: Kaushik Robin MD on 12/29/2016 at 13 :25 Transcribed by: LINDSEY on 12/29/2016 at 13:26 Cardiac Echo Impressions Echocardiogram Report Name: KAELYN MCKENZIE Study Date: 12/28/2016 Height: 61 in Hospital Exam Location: [facility] Weight: 93 lb Gender: Female BSA: 1.4 m2 : 1995 Age: 21 yrs BP: 119/75 mmHg Reason For Study: Hypertension Ordering Physician: Nataly Taylorformed By: Cathryn Spence Interpretation Summary The left ventricle is normal in size, wall thickness, and systolic function without any focal wall motion abnormalities. The ejection fraction is estimated to be 55-60%. The right ventricle is normal in size and function. The right ventricular systolic pressure is estimated at 34 mmHg assuming a right atrial pressure of 8 mm Hg. The left atrium is mildly dilated. Right atrial size is normal. There is no significant valvular heart disease. The aortic root is normal size. Assessment & Plan The patient is a pleasant 21-year-old female with history of hypertension and anemia who was sent to [facility] emergency room by her primary care physician due to a markedly elevated BUN and creatinine after patient visited her PCP complaining of months of headache, fatigue, tiredness and intermittent abdominal pain. # Acute renal failure on chronic kidney disease, present of the time admission and ongoing. - Etiology is uncertain, however renal disease appears to be at an end-stage( ESRD). - Patient has known hypertension and may have hypertensive nephrosclerosis. 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 - Rule out other -such as autoimmune disease and/or connective tissue disease. The patient's DOMINIQUE is positive. However, is nonspecific in nature. - Rule out toxic effects of medications that she has been taking from [place]. This is less likely. - Dr. Everardo Taylor has been consulted and appreciate his time and expertise. - Plan for tunneled hemodialysis catheter placement today and patient is to begin hemodialysis today. # Hemolytic Anemia in addition to anemia of chronic kidney disease, present at the time of admission and ongoing. -Patient now technically has pancytopenia and will need to follow with serial CBCs. -We will consider formal hematology consultation -Suspect this may be due to a connective tissue or autoimmune disorder. # Metabolic acidosis with a type 4 renal tubular acidosis, present of the time of admission and ongoing.. - Recommendations as per Dr. Taylor. # Headaches, general malaise, present at the time of admission and ongoing. This is likely secondary to the above. - Dr. Taylor to begin hemodialysis today - As patient is nothing by mouth this time will give IV Tylenol. # Secondary hyperparathyroidism due to chronic kidney disease -Renvela 800 mg by mouth 3 times a day with meals has been ordered. # Hyperuricemia secondary to above - Allopurinol 100 mg by mouth daily started. Disposition: Patient will likely be here more than 2 midnights for the evaluation and the treatment of the above complicated conditions, therefore patient will be admitted as an inpatient. Pain Evaluation: Adequate Pain Control GI Prophylaxis: Not indicated VTE Prophylaxis: Sub-Q Heparin (Unfractionated) Resuscitation Status: CPR: Attempt Resuscitation Anjel Hightower MD December 29, 2016 13:53
--- NOTE | 2016-12-29 14:45 | NUR ---
Pt arrived to [facility]: Pt arrived to [facility], for dialysis, after tunnel cath placement from [facility]. Pt appears stable at time of arrival. Pt is to be on tele. Tel removed while at procedure but currently back on. quality lab technician aware of transfer. Report obtained from Demi MCNEILL from [facility]. Addendum: 12/29/16 at 1510 by TRINIDAD KITCHEN RN Pt very sleepy but easily roused by verbal instructions. Pt has reinsurance claims analyst at bedside. Tele monitor placed back on and pt is SR @73.
--- NOTE | 2016-12-29 14:47 | NUR ---
RIKKI POST TUNNEL CATH PT RECEIVED FROM MANAGING PARTNER AT 1405. RIGHT UPPER CHEST TUNNEL CATH IN PLACE. SLIGHT BLEEDING/OOZING NOTED TO [facility]. HEALTH OCCUPATIONS TEACHER HELD PRESSURE X5MIN. PT AND HER NURSING CARE WERE TRANSFERRED TO [facility] FOR KD AT 1440. REPORT GIVEN TO EZE MCNEILL AND TRINIDAD MCNEILL.
[2016-12-29] MEDS: Ondansetron 2 mg/mL 2 mL Inj IVPUSH PRN (15:30)
[2016-12-29] MEDS ORDERED: CeFAZolin 1 Gm/50 mL D5W Duplex Bag IV ONE (16:19)
--- NOTE | 2016-12-29 16:52 | NUR ---
Dialysis note: S/P catheter placement 2 1/2 hours tx Zero net UF Right catheter, dsg soaked w/ blood, oozing from the exit site, dsg changed, sutures intact; sandbag applied during tx Pls see DTR for VS details Qb 250 No heparin given O2 @ 2L via NC on during tx PRN Zofran 4 mg IV given for nausea Tolerated tx, slept at intervals Catheter flushed, heparin dwelled and secured Stable condition at end of tx Report given to Sharlene MCNEILL
[2016-12-29] MEDS ORDERED: DESMOPRESSIN IV ONE (17:00)
[2016-12-29] MEDS ORDERED: SODIUM CHLORIDE 0.9% IV ONE (17:00)
--- NOTE | 2016-12-29 19:51 | NUR ---
Transfer to [facility] Pt transferred back to [facility] room 2005 by bed. Pt to have Desmopressin upon return for bleeding per report from CHARITO Su. Upon return pt was tearful stating through seismic interpreter that she has level 10 pain using Rosas/Rose face scale. pt administered 650mg Tylenol for chest pain and headache.
[2016-12-30] VITALS (11 sets, daily range): BP systolic 111–131; BP diastolic 68–83; PULSE 70–107; RESP 15–18; O2SAT 96–100
[2016-12-30] MEDS: HYDROmorphone 0.5 mg/0.5 mL iSecure Syringe IVPUSH PRN ×3 (00:09→17:37)
--- NOTE | 2016-12-30 00:22 | NUR ---
catheter dressing: The dressing was completely saturated with blood and the cath site has been oozing since the cath was put in approximately 10 hours ago. Dressing removed, compression applied with sterile 4 x 4, cleaned with chloroprep. No obvious sign of bleeding but the pts gown has needed to be changed x 2. CHG dressing applied, clean 4x4 added and secured with stretched microfoam tape to add compression. 5 lb bag put on and gave floor RN instructions to check in 45 min and change weight to 2 lbs if there is no bleeding noticed.
[2016-12-30 03:43] LABS: BASOPHILS % (AUTO) 0 % (0-3); EOSINOPHILS % (AUTO) 0 % (0-5); MONOCYTES % (AUTO) 1.4 % (4-12); Mean Corpuscular Hemoglobin 29.7 pg (27.0-35.0); Mean Corpuscular Volume 86.3 fL (81-100); NEUTROPHILS % (AUTO) 87.7 % (40-74); Platelet Count 62 bil/L (150-400)
[2016-12-30 03:58] LABS: Magnesium 1.6 mg/dL (1.6-2.6)
--- NOTE | 2016-12-30 05:31 | NUR ---
Tunnel Catheter Pt c/o significant pain to catheter site at beginning of shift; Tylenol administered per pt request. Pt refused any stronger pain medications at the time. Catheter site oozing; hospital gown changed x1 by PERFECT BINDER OPERATOR. Upon reassessment, pt reported pain did not improve after medication, and drainage noted to new gown. Catheter site reinspected, dressing was saturated with blood and sanguineous drainage down R breast tissue. Site tender to touch, swelling noted to catheter insertion area. Charge nurse consulted and paged. Dilaudid order obtained for pain; 0.25mg administered IVP with relief upon reassessment. Dialysis nurse on floor at time changed dressing, applied foam tape with gauze and pressure; 5lb sandbag placed on chest. Pt instructed to leave in place. At approx. 0200, 5lb sandbag switched to 2lb, site inspection revealed no further bleeding. Site tender to touch. Pt able to rest otherwise, VSS, tele SR 90s-100s.
--- NOTE | 2016-12-30 08:37 | NUR ---
NUTRITION ASSESSMENT: ASSESS:21 YO female admitted with acute on chronic renal failure, end-stage status of unknown etiology. Nephrology starting dialysis today; hematology consult pending. PMHx:Chronic renal disease, HTN, anemia. DIET:Renal. PO intake 75% - 100% all trays. LABS: Reviewed. Chloride 93, BUN 42, Cr 4.66, Glu 159, Ca 7.3, Phos 6.0. MEDICATIONS: Reviewed. Vitamin D3, MVI. NUTRITION FOCUSED PHYSICAL ASSESSMENT: GI symptoms / stool: BM x 2 (12/29).Surjit: 19. Skin Integrity: No issues reported. ANTHROPOMETRICS: Current Wt: 42.5 kgBMI: 17.0 kg/m2. Admit weight: 43.5 kg IBW: 47.7 kg (89% IBW) There has been no weight loss noted in admission history, despite low BMI. ESTIMATED NEEDS (NEW DIALYSIS): Calories: 1275 - 1488 kcal (30 - 35 kcal / kg BW) Protein: 51 - 85 g protein ( 1.2 - 2.0 g/ kg BW) Fluid: Approx. 1063 mL (25 mL / kg BW) NUTRITION DIAGNOSIS: 1)Increased nutrient needs related to requirement for dialysis for end-stage renal disease, as evidenced by placement of dialysis catheter, dialysis initiated today. INTERVENTION: 1) Will add Nepro renal supplement to lunch tray. MONITOR/EVALUATE: Diet tolerance, PO intake, labs, GI/nutrition status. Follow up per moderate nutrition risk guidelines.
--- NOTE | 2016-12-30 08:39 | NUR ---
Room transfer Patient arrived in bed from [facility] for dialysis. Mother accompanied patient. environmental health technician notified of transfer per report, from Daxa Bishop RN.
--- NOTE | 2016-12-30 12:20 | NUR ---
Dialysis note: 3 hours tx 1800 ml net UF Right catheter, dsg dry and intact Pls see DTR for VS details Qb 350 No heparin given O2 @ 2L via NC on during tx PRN Dilaudid 2 mg IV given for pain Treatment stable until return of blood, pt had some N/V but felt better right away after blood completely returned Catheter flushed, heparin dwelled and secured Report given to Yumiko MCNEILL and Roxy MCNEILL
[2016-12-30] MEDS: Heparin 5,000 Unit/mL Inj SUBQ SCH ×2 (12:33→22:23)
[2016-12-30] MEDS: Ondansetron 2 mg/mL 2 mL Inj IVPUSH PRN ×3 (12:34→22:34)
--- NOTE | 2016-12-30 12:35 | NUR ---
Back to [facility] Patient transported back to room 2006 after completing dialysis. Report called by college sports coachSusan. Received pain medication at beginning of dialysis, which was effective. Denies further pain. Mom at bedside throughout treatment. Western Felt Hat Blocker on stick used for communicating needs.
[2016-12-30] MEDS: Multivit-Miner-Folic Acid-Iron Tablet PO SCH (12:39)
[2016-12-30] MEDS: Sodium Chloride LOK Flush 10 mL Syringe IVFLUSH SCH ×3 (12:40→22:23)
[2016-12-30] MEDS ORDERED: Desmopressin Inj 21 MCG in 0.9% Sodium Chloride 50 ML IV ONE (12:50)
--- NOTE | 2016-12-30 13:01 | PCM.PNNEPH ---
Subjective Date of Service December 30, 2016 Subjective The patient tolerated her tunneled catheter placement and first dialysis treatment without significant problems other than some bleeding. She denies any headache, chest pain, shortness of breath, nausea or vomiting. She was seen today with help via an japanese interpreter. Her hemoglobin has dropped once again today to 6.3 with a dropping platelet count of 67,000. Much of the studies from yesterday namely her G6PD level, cough, cold agglutinin, and osmotic fragility are pending at time of this dictation. I have had a lengthy discussion with the patient and her mother via the japanese interpreter line for permission to do a transfusion of 2 units of packed red blood cells. I will also explained the potential risks and benefit of a percutaneous renal biopsy. I have gone ahead after receiving the permission for both the blood transfusion in the renal biopsy have ordered the renal biopsy to be done on Sunday. Abdominal ultrasound did not show any evidence of any splenomegaly. Exam Vital Signs Vital Sign - Last Date Time Temp Pulse Resp B/P Pulse Ox O2 Delivery O2 Flow Rate FiO2 12/30/16 12:34 37.2 92 18 121/68 97 Room Air Intake and Output 12/29/16 12/29/16 12/30/16 Cumulative From/Thru 15:00 23:00 07:00 12/27/16 13:35 - 12/30/16 06:10 Intake Total 233 ml 400 ml 1983 ml Output Total 200 ml 250 ml 1925 ml Balance 33 ml 150 ml 58 ml Intake Oral 0 ml 150 ml 1500 ml IV Total 233 ml 250 ml 483 ml Output Urine Total 200 ml 250 ml 1925 ml Ultrafiltrate 0 ml 0 ml # Voids 2 # Bowel Movements 1 2 Exam HEENT examination is remarkable for pale sclera and sallow complexion. Neck is supple without adenopathy, thyromegaly, or jugular venous distention. Clear to auscultation. Heart is regular and rhythmical with a soft systolic murmur. Abdomen is soft without any tenderness, rebound, guarding, masses, or hepatosplenomegaly. Extremities do not show any evidence of any clubbing, cyanosis, or edema. Skin turgor is good and there is no evidence of any rashes. Lab and Diagnostics Result Diagram: 12/30/16 0325 12/30/16 0325 X-Rays, CTs and MRIs PROCEDURE: US RENAL SONOGRAM INDICATIONS: renal failure TECHNIQUE: Real-time scanning was performed of the kidneys and bladder, with image documentation. COMPARISON: None. FINDINGS: Kidneys: Kidneys are normal in size. Right kidney measures 8.7 cm long; left kidney measures 8.0 cm long. Right renal cortical thickness is 0.8 cm; left renal cortical thickness is 1.0 cm. Renal cortical echotexture is increased bilaterally. No hydronephrosis or nephrolithiasis. No suspicious solid mass lesions. Bladder: Pre-void bladder volume is 99 mL. Post-void residual is 86 mL. Pre- void images demonstrate no intraluminal masses or stones. On pre-void images, neither ureteral jets are noted with color Doppler interrogation. (Of note, ureteral jets may not be detectable in up to 25% of cases due to insufficient differences in specific gravity between ureteral and bladder urine). Miscellaneous: No free pelvic fluid. IMPRESSION: 1. Bilateral renal atrophy, cortical thinning as well as increased renal cortical echogenicity suggesting medical renal disease. No hydronephrosis is seen. Dictated by: Be BANGURA Interpreted: Rose Easley MD on 12/27/2016 at 16: 39 Transcribed by: GREGORIO on 12/27/2016 at 16:41 Approved by: Rose Easley M.D. on 12/27/2016 at 17:53 PROCEDURE: US ABDOMEN INDICATIONS: hemolytic anemia TECHNIQUE: Real-time scanning was performed of the abdominal and retroperitoneal organs, with image documentation. COMPARISON: [facility], US, US RENAL, 12/27/2016, 15:18. FINDINGS: Liver length: 13.71 cm Gallbladder Wall Thickness: 1.50 mm CHD: 1.70 mm CBD: 2.30 mm Spleen length: 8.24 cm Right kidney length: 7.58 cm Left kidney length: 7.96 cm Aorta(Proximal): 1.66 cm Aorta(Mid): 1.48 cm Aorta(Distal): 1.34 cm RCIA: 9.20 mm LCIA: 8.80 mm Liver: Liver is normal in size and homogeneous in echotexture. Gallbladder: Normal gallbladder.. Biliary ducts: Intrahepatic bile ducts are non-dilated. Extrahepatic bile duct caliber is normal. Normal is 6-7 mm or less in diameter, or 10 mm or less post-cholecystectomy. Pancreas: Visualized portions of the pancreas are sonographically normal. Spleen: Spleen is normal in size and homogeneous in echotexture. Kidneys: Atrophy of the kidneys bilaterally with increased renal cortical echogenicity. No hydronephrosis. Aorta: Visualized aorta is normal in caliber at less than 3 cm. Iliacs: Proximal common iliac arteries are normal in caliber at less than 2.5 cm. IVC: Intrahepatic inferior vena cava is patent. Miscellaneous: No free abdominal fluid. IMPRESSION: 1. Abnormal appearance of the kidneys redemonstrated consistent with medical renal disease. Dictated by: Be BANGURA Interpreted: Kaushik Robin MD on 12/29/2016 at 13 :25 Transcribed by: LINDSEY on 12/29/2016 at 13:26 Cardiac Echo Impressions Echocardiogram Report Name: KAELYN MCKENZIE Study Date: 12/28/2016 Height: 61 in Hospital Exam Location: [facility] Weight: 93 lb Gender: Female BSA: 1.4 m2 : 1995 Age: 21 yrs BP: 119/75 mmHg Reason For Study: Hypertension Ordering Physician: Nataly Taylorformed By: Cathryn Spence Interpretation Summary The left ventricle is normal in size, wall thickness, and systolic function without any focal wall motion abnormalities. The ejection fraction is estimated to be 55-60%. The right ventricle is normal in size and function. The right ventricular systolic pressure is estimated at 34 mmHg assuming a right atrial pressure of 8 mm Hg. The left atrium is mildly dilated. Right atrial size is normal. There is no significant valvular heart disease. The aortic root is normal size. Plan Impression Impression #1 end-stage renal disease #2 hemolytic anemia #3 mixed connective tissue disease #4 acute anemia and thrombocytopenia. #5 hypertension with hypertensive heart disease and hypertensive nephrosclerosis. 6 nephrotic range proteinuria. Recommendations #1 patient is to be dialyzed today for 3-1/2 hours on a dialyzer , 2 potassium bath, no heparin, 2 units of packed red blood cells to be given and we will attempt to take off 0.5-1 we will fluid. I will also write for Solu -Medrol 125 mg IV every 12 hours leading up to her biopsy. I would also like to give her an additional dose of 21 g of DDAVP. Total time spent in the care of this patient home for 15 minutes. Everardo Taylor DO December 30, 2016 13:01
--- NOTE | 2016-12-30 13:17 | CONS ---
[address] [address] CONSULTATION REPORT PATIENT: KAELYN MCKENZIE : 1995 MR#: [id number] ADMIT: 12/27/2016 JOB ID: [id number] DATE OF SERVICE: 12/30/2016 HISTORY OF PRESENT ILLNESS: This patient is a 21-year-old woman, hospitalized with hemolytic anemia and renal failure. 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 At that time, she had a normal white cell count of 7.9 but was noted to have a decrease in hemoglobin and hematocrit of 9.9 and 29.6, respectively, with a normal MCV of 93.7, and MCHC of 33.4. Platelets were slightly decreased between 100 and 124,000. Repeat laboratory studies in May 2015 were similar. She is generally followed by Dr. Myrtle Bee at the [facility]. She was seen on December 27, 2016 with complaints of progressive fatigue, anorexia, nausea and pruritus. She also notes a sore throat and recent antibiotic treatment, although she is not sure what antibiotic she was prescribed. She is extremely weak and fatigued. Dr. Bee obtained laboratory studies that included highly elevated creatinine of 6.5, and she was referred to the [facility] Emergency Department for further evaluation. Note that kidney function in May 2015, included a BUN of 30 with creatinine 0.99, completely normal. At admit, her BUN was 99 with a creatinine of 6.79. She had anemia with a hemoglobin of 7.6 and hematocrit 22.1%, MCV 84.7 and MCHC 34.4. Platelets were decreased at 78,000. Her sedimentation rate was highly elevated at 66. She had normal iron studies. Liver function tests were also within normal limits. She had normal coagulation parameters. Urine was negative for nitrite but had moderate occult blood. Leukocyte esterase was negative. She was found to have a haptoglobin less than 10, consistent with intravascular hemolysis, or severe extravascular hemolysis. She had a dialysis catheter placed and is starting renal dialysis. She is quite weak. She denies any acute shortness of breath at this time. She has been afebrile throughout her hospitalization. PAST MEDICAL HISTORY: with a healthy 2-1/2-year-old son. No other significant past medical history. ALLERGIES: No known drug allergies or medication allergies. CURRENT MEDICATIONS: 1. Hydromorphone 0.25-0.5 mg IV p.r.n. 2. Cefazolin 1 g IV administered December 29. 3. Tylenol p.r.n. 4. Heparin 5000 units subcu twice daily. 5. Renvela 800 mg p.o. t.i.d. 6. Allopurinol 100 mg p.o. daily. 7. Vitamin D3 1000 units p.o. daily. 8. vitamins one tablet daily. 9. Ondansetron 4 mg IV p.r.n. 10. Senokot p.r.n. 11. MiraLAX p.r.n. FAMILY HISTORY: The patient is not aware of any familial blood disorders. SOCIAL HISTORY AND HABITS: The patient lives with family in [place]. She has a 2-1/2-year-old son. She is a nonsmoker, nondrinker. REVIEW OF SYSTEMS: She is very fatigued. No acute change in vision or hearing. She has had a sore throat. She denies any fevers or sweats. She has shortness of breath, primarily dyspnea on exertion. She notes the chest pain, which she attributes to her dialysis catheter. She has had nausea with limited oral intake. No vomiting. She has had rare loose stools, none during the hospitalization. She denies any blood per rectum. Urine has rarely had dark color, but she has not noted any blood. She denies any unusual bruising. She denies any acute arthritic concerns. Remaining review of systems is unremarkable. PHYSICAL EXAMINATION: This is a pleasant, young woman who appears quite fatigued. Vitals: T 37.0, P 70, R 16, BP 126/72. Height 154.94 cm, weight 93 pounds (42.5 kg). HEENT: Pupils slightly constricted. Extraocular muscles intact. Sclerae anicteric. Conjunctiva pale. Mucous membranes. Mucous membranes moist. No oral lesions. No erythema or exudate in the oropharynx. Nodes: No adenopathy in the neck or axilla. Chest: Clear throughout. No wheezes or crackles. Cardiac exam: Regular rate and rhythm with normal S1, S2. A I/ systolic ejection murmur across the precordium. Abdomen: Soft, nontender. Normoactive bowel tones. No splenomegaly or masses. Extremities: No edema. 2+ distal pulses. No calf tenderness. No cyanosis or clubbing. No petechiae or ecchymoses. Neuro: Alert and cooperative. Communication appears normal through the iron plastic bullet maker. Mild generalized weakness but no gross focal deficits. LABORATORY DATA: WBC 4.4, hemoglobin 6.4, hematocrit 18.7%, MCV 86, MCHC 34.2, platelets 71,000. Smear - occasional schistocytes and numerous small spherocytes. Sed rate 66 (normal less than 32) reticulocyte count 1.2%, haptoglobin less than 10. Sodium 134, potassium 4.7, BUN 42, creatinine 4.66 (post dialysis). Glucose 159. Calcium 7.3, albumin 3.8, phosphorus 6.0. AST 14, ALT 11, alkaline phosphatase. B12 pending. Folate pending. TSH 1.82. Iron 61. TIBC 217%. Saturation 28%. PT 10.7, INR 1.0, PTT 27.6. VEFPYS39 activity-pending. Urine: Yellow-straw with moderate occult blood, but no significant urinary red blood cells. Rheumatoid factor less than 10. DOMINIQUE-positive with RO antibody 3.1 (normal less than 0.9). Complement C3 of 71 (normal 82-167). Complement C4 of 28 (normal 14 of 44). Hepatitis screen negative for hepatitis A, B, and C. Parvovirus B19 testing-pending. ASSESSMENT AND PLAN: Radha - negative hemolytic anemia: Patient's direct antiglobulin (Radha) test was negative, which makes it far less likely that this is an autoimmune process. However, if the testing described below is negative, then a super-sensitive MISHEL test can detect few rare cases of autoimmune hemolytic anemia. More likely, the current findings fall into categories such as hereditary disease, infections, vitamin deficiencies, and certain thrombotic microangiopathies such as TTP, atypical HUS, and Shiga toxin-producing E. coli HUS. As for hereditary conditions, test for spherocytosis with osmotic fragility testing. There are numerous small spherocytes seen on her smear. More commonly these patients would have an elevated MCHC, which she does not exhibit. G6PD testing could evaluate for this hereditary condition, in which patients have a significant hemolysis with oxidative stress. However, this is an X-linked recessive trade, and rarely affects females. Hemoglobin electrophoresis can evaluate for evidence of thalassemia, which can be associated with a non-immune hemolytic anemia. Doubt that this is sickle cell disease in this patient as no sickle cells were seen on the smear and she has an intact spleen. Infectious causes that have a negative MISHEL can include a mycoplasma and parvovirus B19. Parvovirus in particular is a significant concern, as it is frequently associated with a low reticulocyte count, as seen in this patient. PCR testing for infectious exposure has been requested. Nutritional deficiencies of B12 and folate can lead to a Radha-negative hemolytic anemia, and will be tested for. These patients should be on increased folate replacement. Rare cases of copper deficiency can present with similar findings. The thrombotic microangiopathies such as a TTP, Shiga toxin-producing E. coli-HUS and atypical HUS should all be evaluated. [id number] and stool testing for Shiga testing are in process. If [id number] activity is less than 5%, then this would be consistent with TTP, which can be due to congenital deficiency, or development of antibodies against [id number]. If Shiga testing is positive, then that would make the diagnosis of Shiga toxin-producing E. coli-HUS. If Shiga testing is negative and [id number] activity is greater than 5%, then findings would be consistent with an atypical HUS. Finally, consider paroxysmal nocturnal hemoglobinuria. These patients have a Radha negative hemolytic anemia that can also be frequently associated with an increased risk of thrombosis. Send samples for flow cytometry to check for GPI anchor proteins. Avoid cephalosporins and quinolones which can worsen hemolytic anemia and continue to monitor closely. Agree with dialysis recommendations per Dr. Tayolr. Any transfusion support should use washed red blood cells due to concerns of atypical hemolytic uremic syndrome, and blood products should be irradiated as well, as this patient is a potential future renal transplant candidate. I would have a threshold of hemoglobin less than 7/hematocrit less than 21% for ongoing transfusion support. Thank you very much for allowing us to participate in your patient's care.
--- NOTE | 2016-12-30 16:03 | PCM.PNMED ---
Subjective Date of Service December 30, 2016 Subjective The patient is a pleasant 21-year-old female with history of hypertension and anemia who was sent to [facility] emergency room by her primary care physician due to a markedly elevated BUN and creatinine after patient visited her PCP complaining of months of headache, fatigue, tiredness and intermittent abdominal pain. Patient is complaining of generalized weakness, fatigue, her hemoglobin decreased 6.4 . She had hemodialysis today. She tolerated it well. Exam Vital Signs Vital Sign - Last Date Time Temp Pulse Resp B/P Pulse Ox O2 Delivery O2 Flow Rate FiO2 12/30/16 12:34 37.2 92 18 121/68 97 Room Air Intake and Output 12/29/16 12/29/16 12/30/16 Cumulative From/Thru 14:59 22:59 06:59 12/27/16 13:35 - 12/30/16 06:10 Intake Total 233 ml 400 ml 1983 ml Output Total 200 ml 250 ml 1925 ml Balance 33 ml 150 ml 58 ml Intake Oral 0 ml 150 ml 1500 ml IV Total 233 ml 250 ml 483 ml Output Urine Total 200 ml 250 ml 1925 ml Ultrafiltrate 0 ml 0 ml # Voids 2 # Bowel Movements 1 2 Exam PHYSICAL EXAM: GENERAL: Alert, weak, moderate distress, cooperative HEAD: atraumatic, normocephalic, no bruises. EYES: MARY, EOMI, anicteric, able to fully open and close eyelids SKIN: Skin color normal, turgor normal/decreased. No visible rashes or lesions. EAR, NOSE, MOUTH, THROAT: Lips, oral mucosa, tongue gums, oropharynx are moist , pink, no lesions. Ears normal appearance, no lesions. NECK: no jugulovenous distention, no carotid bruits, carotid pulse normal contour, No carotid bruit, supple, no enlarged lymph nodes appreciated; ROM normal. RESPIRATORY: Lungs clear to auscultation. Good diaphragmatic excursion. Normal percussion sound. CARDIAC: normal S1 and S2; no rubs, murmurs, or gallops; regular rate and rhythm ABDOMEN: Abdomen soft, non-tender. BS normal. No masses or organomegaly. MUSCULOSKELETAL: ROM full, muscles are not tender EXTREMITIES:no pitting edema in LE, no deformities, clubbing or skin discoloration. NEURO: Alert, oriented X3 , Sensation grossly intact., Cranial nerves II-XII intact, Grossly normal motor function. PULSES: 2+ radial, 2+ posterial tibial, 2+ dorsalis pedis, 2+ carotid REVIEW OF SYSTEMS: GENERAL: + malaise, no fevers., SEE HPI HEENT: Negative for frequent or significant headaches, No changes in hearing or vision, no nose bleeds or other nasal problems NECK: Negative for lumps, goiter, pain and significant neck swelling All other reviewed and negative other than HPI. IVs and Medications Medications Reviewed: Medications were reviewed in detail Lab and Diagnostics Result Diagram: 12/30/16 1430 12/30/16 0325 X-Rays, CTs and MRIs PROCEDURE: US RENAL SONOGRAM INDICATIONS: renal failure TECHNIQUE: Real-time scanning was performed of the kidneys and bladder, with image documentation. COMPARISON: None. FINDINGS: Kidneys: Kidneys are normal in size. Right kidney measures 8.7 cm long; left kidney measures 8.0 cm long. Right renal cortical thickness is 0.8 cm; left renal cortical thickness is 1.0 cm. Renal cortical echotexture is increased bilaterally. No hydronephrosis or nephrolithiasis. No suspicious solid mass lesions. Bladder: Pre-void bladder volume is 99 mL. Post-void residual is 86 mL. Pre- void images demonstrate no intraluminal masses or stones. On pre-void images, neither ureteral jets are noted with color Doppler interrogation. (Of note, ureteral jets may not be detectable in up to 25% of cases due to insufficient differences in specific gravity between ureteral and bladder urine). Miscellaneous: No free pelvic fluid. IMPRESSION: 1. Bilateral renal atrophy, cortical thinning as well as increased renal cortical echogenicity suggesting medical renal disease. No hydronephrosis is seen. Dictated by: Be Harrell [facility] Interpreted: Rose Easley MD on 12/27/2016 at 16: 39 Transcribed by: GREGORIO on 12/27/2016 at 16:41 Approved by: Rose Easley M.D. on 12/27/2016 at 17:53 PROCEDURE: US ABDOMEN INDICATIONS: hemolytic anemia TECHNIQUE: Real-time scanning was performed of the abdominal and retroperitoneal organs, with image documentation. COMPARISON: [facility], US, US RENAL, 12/27/2016, 15:18. FINDINGS: Liver length: 13.71 cm Gallbladder Wall Thickness: 1.50 mm CHD: 1.70 mm CBD: 2.30 mm Spleen length: 8.24 cm Right kidney length: 7.58 cm Left kidney length: 7.96 cm Aorta(Proximal): 1.66 cm Aorta(Mid): 1.48 cm Aorta(Distal): 1.34 cm RCIA: 9.20 mm LCIA: 8.80 mm Liver: Liver is normal in size and homogeneous in echotexture. Gallbladder: Normal gallbladder.. Biliary ducts: Intrahepatic bile ducts are non-dilated. Extrahepatic bile duct caliber is normal. Normal is 6-7 mm or less in diameter, or 10 mm or less post-cholecystectomy. Pancreas: Visualized portions of the pancreas are sonographically normal. Spleen: Spleen is normal in size and homogeneous in echotexture. Kidneys: Atrophy of the kidneys bilaterally with increased renal cortical echogenicity. No hydronephrosis. Aorta: Visualized aorta is normal in caliber at less than 3 cm. Iliacs: Proximal common iliac arteries are normal in caliber at less than 2.5 cm. IVC: Intrahepatic inferior vena cava is patent. Miscellaneous: No free abdominal fluid. IMPRESSION: 1. Abnormal appearance of the kidneys redemonstrated consistent with medical renal disease. Dictated by: Be Harrell RRFausto Interpreted: Kaushik Robin MD on 12/29/2016 at 13 :25 Transcribed by: LINDSEY on 12/29/2016 at 13:26 Cardiac Echo Impressions Echocardiogram Report Name: KAELYN MCKENZIE Study Date: 12/28/2016 Height: 61 in Hospital Exam Location: [facility] Weight: 93 lb Gender: Female BSA: 1.4 m2 : 1995 Age: 21 yrs BP: 119/75 mmHg Reason For Study: Hypertension Ordering Physician: Nataly Taylorformed By: Cathryn Spence Interpretation Summary The left ventricle is normal in size, wall thickness, and systolic function without any focal wall motion abnormalities. The ejection fraction is estimated to be 55-60%. The right ventricle is normal in size and function. The right ventricular systolic pressure is estimated at 34 mmHg assuming a right atrial pressure of 8 mm Hg. The left atrium is mildly dilated. Right atrial size is normal. There is no significant valvular heart disease. The aortic root is normal size. Assessment & Plan The patient is a pleasant 21-year-old female with history of hypertension and anemia who was sent to [facility] emergency room by her primary care physician due to a markedly elevated BUN and creatinine after patient visited her PCP complaining of months of headache, fatigue, tiredness and intermittent abdominal pain. Acute renal failure on chronic kidney disease, present of the time admission and ongoing. 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 - Patient has known hypertension and may have hypertensive nephrosclerosis. 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 - Rule out other -such as autoimmune disease and/or connective tissue disease. The patient's DOMINIQUE is positive. However, is nonspecific in nature. - Rule out toxic effects of medications that she has been taking from [place]. - Nephrology and Hem/Onc on the . - tunneled hemodialysis catheter was placed Plan - Hemodialysis as per nephrology recommendation, BMP daily. - Follow up with pst specialist and communications technician. Anemia, unclear etiology -Hemoglobin decreasing - Hematology is on the case - Risks and benefits of blood product transfusions reviewed and discussed with the patient in details. Patient is aware that blood product transfusion can cause severe transfusion or allergic reactions that can lead to severe disability or even . Patient is also aware of possible infections that can be rarely transmitted with blood product transfusions( HIV, hepatitis B, D, C and other infections). Patient agreed to transfusion of blood products if medically necessary. Plan - Monitor for signs of bleeding and transfuse if Hb is less than 7 and patient or POA(next of sravan) consents to transfusion, monitor CBC daily - Transfuse 2 units of RBC as per hem/onc recommendation Headaches, general malaise, present at the time of admission and ongoing. This is likely secondary to the above. - Stable Secondary hyperparathyroidism due to chronic kidney disease - Continue with current meds Hyperuricemia secondary to above - Allopurinol DVT prophylaxis - sequential compression devices Disposition: Patient will likely be here more than 2 midnights for the evaluation and the treatment of the above complicated conditions, therefore patient will be admitted as an inpatient. Labs, other tests reviewed Plan of care, medication side effects, home medication, diagnostic procedures and available alternatives were discussed and reviewed with patient/family. All questions answered. Patient/family verbalized understanding, approved and agreed to plan of care. Given patient's current condition, I certify, in my opinion inpatient services greater than two midnights are medically necessary for this patient. Please see H&P and MD progress notes for additional information about patient's course of treatment. GI Prophylaxis: Not indicated VTE Prophylaxis: Sub-Q Heparin (Unfractionated) Resuscitation Status: CPR: Attempt Resuscitation Time spent more than 35 min Edmundo Ellis MD December 30, 2016 16:03
--- NOTE | 2016-12-30 18:22 | NUR ---
Pain/Nausea/Palpitations Patient is indian speaking only, c/o incisional pain at tunnel cath site this a.m. IV Dilaudid given prior to dialysis. Patient had [place] [facility], had one episode of nausea and emesis during dialysis. Patient returned to room awake and alert. Patient c/o nausea and emesis x 2 post Dilaudid and with meals, Zofran x 2 given with good effect. Patient c/o pounding head pain and pounding blood in her arms this evening. Interpretor on a stick used for assessments and answer pt questions. Patient oob to chair with assist of family. Voiding small amt yellow uop. Taking diet fair. Will cont poc.
[2016-12-30] MEDS: MethylprednisoLONE Sodium Succinate 62.5 mg/mL 2 mL Inj IVPUSH SCH (22:23)
[2016-12-30] MEDS: 0.9% Sodium Chloride 250 ML IV SCH (22:23)
[2016-12-31] VITALS (14 sets, daily range): BP systolic 108–139; BP diastolic 71–95; PULSE 70–97; RESP 14–20; O2SAT 96–99
--- NOTE | 2016-12-31 06:00 | NUR ---
Blood Administration Pt given 2 units RBCs this shift; no adverse reactions or symptoms, pt stable throughout. All questions answered with translator interpreter on a stick. VSS, pt denies pain this shift except for minor headache at beginning of shift with relief after Tylenol administration. Tele SR 90s.
[2016-12-31] MEDS: 0.9% Sodium Chloride 250 ML IV SCH (08:30)
[2016-12-31] MEDS: Sodium Chloride LOK Flush 10 mL Syringe IVFLUSH SCH ×2 (08:30→16:24)
[2016-12-31 08:54] LABS: Mean Corpuscular Hemoglobin 28.8 pg (27.0-35.0); Mean Corpuscular Volume 86.1 fL (81-100); Platelet Count 87 bil/L (150-400)
[2016-12-31] MEDS: Heparin 5,000 Unit/mL Inj SUBQ SCH ×2 (09:22→20:30)
[2016-12-31] MEDS: Ondansetron 2 mg/mL 2 mL Inj IVPUSH PRN ×2 (09:22→16:24)
[2016-12-31] MEDS: MethylprednisoLONE Sodium Succinate 62.5 mg/mL 2 mL Inj IVPUSH SCH ×2 (09:22→20:53)
[2016-12-31 09:32] LABS: BASOPHILS % (AUTO) 0 % (0-3); EOSINOPHILS % (AUTO) 0 % (0-5); MONOCYTES % (AUTO) 2.4 % (4-12); NEUTROPHILS % (AUTO) 86.3 % (40-74)
[2016-12-31] MEDS: Multivit-Miner-Folic Acid-Iron Tablet PO SCH (10:08)
--- NOTE | 2016-12-31 11:53 | PCM.PNNEPH ---
Subjective Date of Service December 31, 2016 Subjective The patient looks and feels a bit better today following her second dialysis treatment and 2 units of blood. I reviewed Dr. Marti hematological evaluation and his input was greatly appreciated. Unfortunately some of the tests that we have ordered are still pending at time of this evaluation. She is only complaint is some mild increased shortness of breath and some nausea and vomiting last night. This was relieved by Zofran. Otherwise she denies any headache or chest pain. On line parts interpreter I once again really explained to the patient will plan to do a percutaneous renal biopsy on her tomorrow which will be followed by another dialysis treatment. She understands and once again gives her consent. Last 24 hours her blood pressures have ranged from 110 130 systolic. She has had 850 in and 400 out. Her hemoglobin is 9.3 with an increase in her platelet count 87,000. Stool guaiacs are negative. Exam Vital Signs Vital Sign - Last Date Time Temp Pulse Resp B/P Pulse Ox O2 Delivery O2 Flow Rate FiO2 12/31/16 09:51 78 12/31/16 09:10 36.7 16 135/95 99 Room Air 12/31/16 04:06 2.00 Intake and Output 12/30/16 12/30/16 12/31/16 Cumulative From/Thru 15:00 23:00 07:00 12/27/16 13:35 - 12/31/16 06:22 Intake Total 450 ml 900 ml 3333 ml Output Total 1800 ml 150 ml 200 ml 4075 ml Balance -1800 ml 300 ml 700 ml -742 ml Intake Oral 400 ml 200 ml 2100 ml IV Total 50 ml 200 ml 733 ml Packed Cells 500 ml 500 ml Output Urine Total 150 ml 200 ml 2275 ml Ultrafiltrate 1800 ml 1800 ml # Voids 2 # Bowel Movements 0 0 2 Exam HEENT examination was remarkable for pale sclera and sallow complexion however this APPEARS to be a bit less than pretransfusion. Neck is supple without adenopathy, thyromegaly, or jugular venous distention. Lungs are clear to auscultation. Heart is regular and rhythmical with a soft systolic murmur. Abdomen is soft without any tenderness, rebound, guarding, masses, or hepatosplenomegaly. Extremities show any evidence of any clubbing, cyanosis, or edema. Skin turgor is good and no evidence of any rashes. Lab and Diagnostics Result Diagram: 12/31/16 0840 12/31/16 0840 X-Rays, CTs and MRIs PROCEDURE: US RENAL SONOGRAM INDICATIONS: renal failure TECHNIQUE: Real-time scanning was performed of the kidneys and bladder, with image documentation. COMPARISON: None. FINDINGS: Kidneys: Kidneys are normal in size. Right kidney measures 8.7 cm long; left kidney measures 8.0 cm long. Right renal cortical thickness is 0.8 cm; left renal cortical thickness is 1.0 cm. Renal cortical echotexture is increased bilaterally. No hydronephrosis or nephrolithiasis. No suspicious solid mass lesions. Bladder: Pre-void bladder volume is 99 mL. Post-void residual is 86 mL. Pre- void images demonstrate no intraluminal masses or stones. On pre-void images, neither ureteral jets are noted with color Doppler interrogation. (Of note, ureteral jets may not be detectable in up to 25% of cases due to insufficient differences in specific gravity between ureteral and bladder urine). Miscellaneous: No free pelvic fluid. IMPRESSION: 1. Bilateral renal atrophy, cortical thinning as well as increased renal cortical echogenicity suggesting medical renal disease. No hydronephrosis is seen. Dictated by: Be Harrell [facility] Interpreted: Rose Easley MD on 12/27/2016 at 16: 39 Transcribed by: GREGORIO on 12/27/2016 at 16:41 Approved by: Rose Easley M.D. on 12/27/2016 at 17:53 PROCEDURE: US ABDOMEN INDICATIONS: hemolytic anemia TECHNIQUE: Real-time scanning was performed of the abdominal and retroperitoneal organs, with image documentation. COMPARISON: [facility], US, US RENAL, 12/27/2016, 15:18. FINDINGS: Liver length: 13.71 cm Gallbladder Wall Thickness: 1.50 mm CHD: 1.70 mm CBD: 2.30 mm Spleen length: 8.24 cm Right kidney length: 7.58 cm Left kidney length: 7.96 cm Aorta(Proximal): 1.66 cm Aorta(Mid): 1.48 cm Aorta(Distal): 1.34 cm RCIA: 9.20 mm LCIA: 8.80 mm Liver: Liver is normal in size and homogeneous in echotexture. Gallbladder: Normal gallbladder.. Biliary ducts: Intrahepatic bile ducts are non-dilated. Extrahepatic bile duct caliber is normal. Normal is 6-7 mm or less in diameter, or 10 mm or less post-cholecystectomy. Pancreas: Visualized portions of the pancreas are sonographically normal. Spleen: Spleen is normal in size and homogeneous in echotexture. Kidneys: Atrophy of the kidneys bilaterally with increased renal cortical echogenicity. No hydronephrosis. Aorta: Visualized aorta is normal in caliber at less than 3 cm. Iliacs: Proximal common iliac arteries are normal in caliber at less than 2.5 cm. IVC: Intrahepatic inferior vena cava is patent. Miscellaneous: No free abdominal fluid. IMPRESSION: 1. Abnormal appearance of the kidneys redemonstrated consistent with medical renal disease. Dictated by: Be BANGURA Interpreted: Kaushik Robin MD on 12/29/2016 at 13 :25 Transcribed by: LINDSEY on 12/29/2016 at 13:26 Cardiac Echo Impressions Echocardiogram Report Name: KAELYN MCKENZIE Study Date: 12/28/2016 Height: 61 in Hospital Exam Location: [facility] Weight: 93 lb Gender: Female BSA: 1.4 m2 : 1995 Age: 21 yrs BP: 119/75 mmHg Reason For Study: Hypertension Ordering Physician: Everardo TaylorPerformed By: Cathryn Spence Interpretation Summary The left ventricle is normal in size, wall thickness, and systolic function without any focal wall motion abnormalities. The ejection fraction is estimated to be 55-60%. The right ventricle is normal in size and function. The right ventricular systolic pressure is estimated at 34 mmHg assuming a right atrial pressure of 8 mm Hg. The left atrium is mildly dilated. Right atrial size is normal. There is no significant valvular heart disease. The aortic root is normal size. 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 I would also like to continue her twice daily Solu-Medrol. Time spent 45 minutes. Everardo Taylor DO December 31, 2016 11:53
--- NOTE | 2016-12-31 12:42 | PROG NOTE ---
[address] [address] PROGRESS NOTE PATIENT: KAELYN MCKENZIE : 1995 MR#: [id number] ADMIT: 12/27/2016 JOB ID: [id number] ONCOLOGY INPATIENT PROGRESS NOTE: DATE: 12/31/2016 SUBJECTIVE: The patient is a 21-year-old G1, P1, woman, hospitalized with hemolytic anemia and renal failure. Please refer to consultation for full details. She received 2 units irradiated washed red blood cells yesterday. Energy is improved and she is in good spirits this morning. She had her second dialysis yesterday, and is scheduled for renal biopsy tomorrow. She has had extensive blood and stool sampling to evaluate the underlying etiology with results pending. OBJECTIVE: Vitals: T 36.7, P 70, R 16, BP 135/95. O2 saturation 99% on room air. HEENT: Conjunctivae pale. Mucous membranes moist. Chest clear. Cardiac exam: Regular rate and rhythm. Abdomen: Soft, nontender. Normoactive bowel tones. Extremities: No edema. 2+ distal pulses. No calf tenderness. LABORATORIES: WBC 5.1, hemoglobin 9.3, hematocrit 27.8%, MCV 86, MCHC 33, platelets 87,000. Sed rate 66, reticulocyte count 1.2%. Hemoglobin electrophoresis pending. Haptoglobin less than 10. G6 PD testing pending. RBC osmotic fragility testing pending. B12 and folate pending. Justice TS 13 activity pending. Mycoplasma testing pending. Parvovirus testing pending. Stool sampling for Shiga-toxin producing E. coli pending. ASSESSMENT AND PLAN: Radha negative hemolytic anemia: Await results of above laboratory testing. Diagnostic possibilities include hereditary diseases, such as spherocytosis, possibly complicated by parvovirus or mycoplasma infection, vitamin deficiencies, and the thrombotic microangiopathies such as thrombotic thrombocytopenic purpura, atypical HUS, and Shiga toxin-producing Escherichia coli HUS. No acute changes at this time as we await results of her testing. We also look forward to her upcoming renal biopsy tomorrow. BUN and creatinine remain elevated, but significantly improved following recent dialysis.
--- NOTE | 2016-12-31 17:52 | PCM.PNMED ---
Subjective Date of Service December 31, 2016 Subjective Nicole Patel is a 21-year-old female with history of hypertension and anemia who was sent to [facility] emergency room by her primary care physician due to a markedly elevated BUN and creatinine after patient visited her PCP complaining of months of headache, fatigue, tiredness and intermittent abdominal pain. Currently under treatment for newly diagnosed ESRD on HD, hemolytic anemia. Hospital day #5 Overnight: Patient was transfused 2 units of PRBC overnight. Today: Patient states she is feeling less tired today. She denies any chest pain , shortness of breath, fevers or chills. She denies any discharge from her catheter side. She does note that she has some itching at the site. The remainder of the ROS is negative except as noted above. Exam Vital Signs Vital Sign - Last Date Time Temp Pulse Resp B/P Pulse Ox O2 Delivery O2 Flow Rate FiO2 12/31/16 16:26 36.7 90 18 131/86 96 Room Air 12/31/16 12:48 2.00 Intake and Output 12/30/16 12/30/16 12/31/16 Cumulative From/Thru 15:00 23:00 07:00 12/27/16 13:35 - 12/31/16 06:22 Intake Total 450 ml 900 ml 3333 ml Output Total 1800 ml 150 ml 200 ml 4075 ml Balance -1800 ml 300 ml 700 ml -742 ml Intake Oral 400 ml 200 ml 2100 ml IV Total 50 ml 200 ml 733 ml Packed Cells 500 ml 500 ml Output Urine Total 150 ml 200 ml 2275 ml Ultrafiltrate 1800 ml 1800 ml # Voids 2 # Bowel Movements 0 0 2 Exam GENERAL: Alert, weak, in no acute distress, sitting up in a hospital bed. HEAD: atraumatic, normocephalic, no bruises. EYES: MARY, EOMI, anicteric, able to fully open and close eyelids SKIN: Skin color normal, turgor normal/decreased. No visible rashes or lesions. EAR, NOSE, MOUTH, THROAT: Lips, oral mucosa, tongue gums, oropharynx are moist , pink, no lesions. Ears normal appearance, no lesions. NECK: no jugulo venous distention, carotid pulse normal contour, supple, no enlarged lymph nodes appreciated; ROM normal. RESPIRATORY: Lungs clear to auscultation. Good diaphragmatic excursion. Normal percussion sound. CHEST: dialysis catheter with dressing over it. no signs of bleeding. no discharge. CARDIAC: normal S1 and S2; no rubs, murmurs, or gallops; regular rate and rhythm ABDOMEN: Abdomen soft, non-tender. BS normal. No masses or organomegaly. MUSCULOSKELETAL: ROM full, muscles are not tender EXTREMITIES:no pitting edema in LE, no deformities, clubbing or skin discoloration. NEURO: Alert, oriented X3 , Sensation grossly intact., Cranial nerves II-XII intact, Grossly normal motor function. PULSES: 2+ radial, 2+ posterial tibial, 2+ dorsalis pedis, 2+ carotid IVs and Medications Medications Reviewed: Medications were reviewed in detail Lab and Diagnostics Result Diagram: 12/31/1683912/31/16 0840 X-Rays, CTs and MRIs US RENAL SONOGRAM IMPRESSION: 1. Bilateral renal atrophy, cortical thinning as well as increased renal cortical echogenicity suggesting medical renal disease. No hydronephrosis is seen. Dictated by: Be BANGURA Interpreted: Rose Easley MD on 12/27/2016 at 16: 39 US ABDOMEN IMPRESSION: 1. Abnormal appearance of the kidneys redemonstrated consistent with medical renal disease. Dictated by: Be BANGURA Interpreted: Kaushik Robin MD on 12/29/2016 at 13 :25 Cardiac Echo Impressions Interpretation Summary The left ventricle is normal in size, wall thickness, and systolic function without any focal wall motion abnormalities. The ejection fraction is estimated to be 55-60%. The right ventricle is normal in size and function. The right ventricular systolic pressure is estimated at 34 mmHg assuming a right atrial pressure of 8 mm Hg. The left atrium is mildly dilated. Right atrial size is normal. There is no significant valvular heart disease. The aortic root is normal size. Assessment & Plan Nicole Patel is a 21-year-old female with history of hypertension and anemia who was sent to [facility] emergency room by her primary care physician due to a markedly elevated BUN and creatinine after patient visited her PCP complaining of months of headache, fatigue, tiredness and intermittent abdominal pain. Currently under treatment for newly diagnosed ESRD on HD, hemolytic anemia. Hospital day #5 Acute renal failure on chronic kidney disease, present of the time admission and ongoing. 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 - Patient has known hypertension and may have hypertensive nephrosclerosis. 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 - Rule out autoimmune disease and/or connective tissue disease. The patient's DOMINIQUE is positive. However, is nonspecific in nature. - Rule out toxic effects of medications that she has been taking from [place]. - Nephrology and Hem/Onc consulted, appreciate time and expertise. - Tunneled hemodialysis catheter was placed - Hemodialysis as per nephrology recommendation, BMP daily. - Follow up with grant specialist and blunger machine operator. - Renal biopsy scheduled tomorrow Hemolytic anemia, unclear etiology. S/P 2 units of PRBC -Hematology is on the case -Monitor for signs of bleeding and transfuse if Hb is less than 7 and patient or POA (next of sravan) consents to transfusion, monitor CBC daily -Follow up pending studies Headaches, general malaise, present at the time of admission and ongoing. This is likely secondary to the above. - Stable Secondary hyperparathyroidism due to chronic kidney disease - Continue with current meds Hyperuricemia secondary to above - Allopurinol DVT prophylaxis - sequential compression devices Disposition: Anticipate patient will be in the hospital for the evaluation and the treatment of the above complicated conditions. GI Prophylaxis: Not indicated VTE Prophylaxis: Sub-Q Heparin (Unfractionated) Resuscitation Status: CPR: Attempt Resuscitation Time spent 35 min Attending Statement Patient was seen and examined by me today. I confirmed pertinent physical exam findings and agree with physical exam as documented. I agree with overall assessment and plan of care as documented. Labs, radiology tests reviewed. Plan of care, medication side effects, home medication, diagnostic procedures and available alternatives were discussed and reviewed with the patient. All questions answered. Patient verbalized understanding, approved and agreed to plan of care. Laura Rivera DO December 31, 2016 17:00 Edmundo Ellis MD December 31, 2016 18:53
[2016-12-31 17:56] LABS: D-Dimer 0.8 mg/L FEU (<0.50); INR 0.99 ratio
--- NOTE | 2016-12-31 18:30 | NUR ---
Activity/Diet/Nausea Patient a/o x 3, japanese speaking only, interpretor used throughout the shift. Family at bedside to assist with care. Patient oob amb with sba, c/o tiredness and weakness. Patient taking diet poor, c/o nausea/emesis after each meal. Patient family states "She gets sick when she takes the pill to bind the food." Zofran x 2 given with mod effect. Family and patient requesting to try another antiemedic if possible. Patient bathed this afternoon with moderate assist. VSS, tele SR. Will cont poc.
--- NOTE | 2016-12-31 19:32 | NUR ---
SOB/Chills/Nuero Patient a/o x 3, began c/o SOB, mild chest pain and palpitations and BLE decreased sensation. Bilat pedal pulses palpable and feet warm to touch. O2 @ 2 L oxymask applied, sat 99%, tele SR 90's temp 36.7. Lungs clear bilat. Patient states she voided only one time this a.m. but denies sensation to urinate. Catie RN given report and paged.
[2016-12-31 21:15] LABS: Magnesium 1.6 mg/dL (1.6-2.6)
[2017-01-01] VITALS (13 sets, daily range): BP systolic 119–157; BP diastolic 73–97; PULSE 65–82; RESP 14–16; O2SAT 95–99
--- NOTE | 2017-01-01 04:06 | NUR ---
Nausea/Insomnia MD to bedside to assess patient at 1945. Patient reports feeling better, no current numbness, palpitations, or shortness of breath. New orders for labs and lorazepam to help patient sleep and for nausea. Patient continued to report nausea, but later was up at the bedside eating food brought in by her family. Reminded patient that she would not be able to eat or drink anything after midnight; patient verbalized understanding. Continue to monitor.
[2017-01-01] MEDS: Sodium Chloride LOK Flush 10 mL Syringe IVFLUSH SCH ×4 (05:18→21:09)
[2017-01-01] MEDS: Heparin 5,000 Unit/mL Inj SUBQ SCH ×2 (07:10→21:09)
[2017-01-01 07:43] LABS: BASOPHILS % (AUTO) 0 % (0-3); EOSINOPHILS % (AUTO) 0 % (0-5); Mean Corpuscular Hemoglobin 29.1 pg (27.0-35.0); Mean Corpuscular Volume 84.5 fL (81-100); Platelet Count 100 bil/L (150-400)
[2017-01-01 08:03] LABS: ERYTHROCYTE SEDIMENTATION RATE 30 mm/hr (0-32)
[2017-01-01] MEDS: MethylprednisoLONE Sodium Succinate 62.5 mg/mL 2 mL Inj IVPUSH SCH ×2 (08:30→21:09)
[2017-01-01] MEDS: 0.9% Sodium Chloride 250 ML IV SCH (08:30)
--- NOTE | 2017-01-01 08:36 | PROG NOTE ---
[address] [address] PROGRESS NOTE PATIENT: KAELYN MCKENZIE : 1995 MR#: [id number] ADMIT: 12/27/2016 JOB ID: [id number] DATE: 01/01/2017 SUBJECTIVE: The patient is a 21-year-old woman, hospitalized with hemolytic anemia and renal failure. She underwent dialysis on Sunday and Sunday, and is scheduled for additional treatment later today after upcoming kidney biopsy. She was transfused with 2 units washed, irradiated packed red blood cells over the weekend, with significant improvement in energy. However, she is feeling a bit weaker this morning. No nausea or vomiting. OBJECTIVE: Vitals: T 36.9, P 75, R 16, BP 134/91, O2 saturation 95% on room air. HEENT: Conjunctivae pale. Mucous membranes moist. No oral lesions. Nodes: No adenopathy in the neck or axilla. Chest: Clear. Cardiac exam: Regular rate and rhythm with normal S1, S2. A 1/6 systolic ejection murmur across the precordium. Abdomen: Soft, nontender. Normoactive bowel tones. No splenomegaly or masses. Extremities: No edema. 2+ distal pulses. No calf tenderness. LABORATORIES: WBC 10.4 with 89% neutrophils, 7% lymphocytes, hemoglobin 8.6, hematocrit 25%, platelets 100,000, reticulocyte count 1.6%. Sed rate pending. Haptoglobin pending. B12 and folate pending. PNH testing-pending. Hemoglobin electrophoresis-pending. G6 PD testing-pending. Osmotic fragility-pending. [id number] activity-over 72% per lab. Mycoplasma testing-pending. Parvovirus testing-pending. ASSESSMENT AND PLAN: Radha negative hemolytic anemia: Direct antiglobulin testing was negative, making it unlikely that this is an autoimmune process. Hereditary testing for spherocytosis (osmotic fragility testing) is pending. Testing for infections (mycoplasma, parvovirus) is pending. Vitamin deficiency testing is pending. The high [id number] activity essentially rules out thrombotic thrombocytopenic purpura (TTP), but could be associated with a Shiga toxin-producing Escherichia coli (HUS). Await stool studies for Shiga toxin-producing Escherichia coli. If this is negative, then, given the highly elevated [id number] activity, atypical HUS would be highly likely diagnosis. Await additional testing for PNH and hemoglobin electrophoresis to evaluate for any evidence of thalassemia or other hereditary disease. Agree with continuing dialysis recommendations per Dr. Taylor, and with upcoming renal biopsy later today. Continue to monitor. I would have a threshold for transfusion with hemoglobin less than 7 or hematocrit less than 21%, but would use only washed irradiated blood products, as she is a potential candidate for future kidney transplant.
[2017-01-01] MEDS: HYDROmorphone 0.5 mg/0.5 mL iSecure Syringe IVPUSH PRN (09:21)
--- NOTE | 2017-01-01 11:58 | PCM.PNNEPH ---
Subjective Date of Service January 01, 2017 Subjective Bleeding per exit site of tunneled cath stopped. Renal US pending. Exam Vital Signs Vital Sign - Last Date Time Temp Pulse Resp B/P Pulse Ox O2 Delivery O2 Flow Rate FiO2 01/01/17 11:49 69 14 134/87 95 Room Air 01/01/17 08:27 36.7 12/31/16 12:48 2.00 Intake and Output 12/31/16 12/31/16 01/01/17 Cumulative From/Thru 14:59 22:59 06:59 12/27/16 13:35 - 01/01/17 06:06 Intake Total 1130 ml 220 ml 4683 ml Output Total 100 ml 800 ml 4975 ml Balance 1030 ml -580 ml -292 ml Intake Oral 1100 ml 200 ml 3400 ml IV Total 30 ml 20 ml 783 ml Packed Cells 500 ml Output Urine Total 100 ml 800 ml 3175 ml Ultrafiltrate 1800 ml # Voids 3 2 7 # Bowel Movements 1 3 Exam GENERAL: AAOx3, NAD, lying in bed comfortably, weak. HEENT: Atraumatic, normocephalic, PERRLA, EOMI, anicteric, no JVD, no LAD. CARDIAC: normal S1 and S2; no rubs, murmurs, or gallops, RRR. Lungs: Clear to auscultation. No wheezing, no rhonchi. ABDOMEN: Abdomen soft, non-tender. BS normal. No masses or organomegaly. EXTREMITIES: no pitting edema, no deformities, clubbing. Skin: no rash, no excoriation, no discoloration. Lab and Diagnostics Result Diagram: 01/01/17 1125 01/01/17 0730 X-Rays, CTs and MRIs US RENAL SONOGRAM IMPRESSION: 1. Bilateral renal atrophy, cortical thinning as well as increased renal cortical echogenicity suggesting medical renal disease. No hydronephrosis is seen. Dictated by: Be BANGURA Interpreted: Rose Easley MD on 12/27/2016 at 16: 39 US ABDOMEN IMPRESSION: 1. Abnormal appearance of the kidneys redemonstrated consistent with medical renal disease. Dictated by: Be BANGURA Interpreted: Kaushik Robin MD on 12/29/2016 at 13 :25 Cardiac Echo Impressions Interpretation Summary The left ventricle is normal in size, wall thickness, and systolic function without any focal wall motion abnormalities. The ejection fraction is estimated to be 55-60%. The right ventricle is normal in size and function. The right ventricular systolic pressure is estimated at 34 mmHg assuming a right atrial pressure of 8 mm Hg. The left atrium is mildly dilated. Right atrial size is normal. There is no significant valvular heart disease. The aortic root is normal size. Plan Impression 1. Severe renal insufficiency likely ESRD. s/p tunneled cath placement, first HD on 12/29/16. Etiology to be determined. 2. Nephrotic-range proteinuria. - Positive DOMINIQUE/Anti-RO - Low C3. 3. Hemolytic anemia. w/u pending. s/p 2u PRBCs. 4. Hypertension with hypertensive heart disease and hypertensive nephrosclerosis 5. Secondary hyperparathyroidism. Plan: Pending kidney biopsy today. HD after a procedure. Check RPR, CRP, BMP, lipids in am. Repeat Hb&Hct after renal biopsy. Jacy Banks MD January 01, 2017 11:58
--- NOTE | 2017-01-01 12:01 | NUR ---
Npo/Headache/US Patient npo since midnight, c/o severe headache this a.m. not resolved with Tylenol.. MD in to assess patient this a.m. with interpretor on a stick. IV Dilaudid given with good effect. Patient denies nausea this a.m. Patient down to US at 1030 via wheelchair. Patient bed taken [facility] to [facility] for patient Dialysis.
[2017-01-01] MEDS ORDERED: Darbepoetin Alfa (ESRD) 60 mCg/0.3 mL Inj SUBQ ONE (13:10)
--- NOTE | 2017-01-01 13:18 | NUR ---
Received from [facility] Patient transported by [facility] RN to room 244-1 for dialysis. Denies pain. Lying on left side, biopsy side. Report received from CHARITO [place]
--- NOTE | 2017-01-01 13:31 | DRSVH ---
PROCEDURE: US GUIDED RENAL BIOPSY (PNL-9519) INDICATIONS: DANIELLE TECHNIQUE: The indications, alternatives, benefits, risks, and complications of the procedure were e xplained to the patient. Written informed consent was obtained and placed in the chart. Continuous EKG and hemodynamic monitoring was started by trained personnel. The kidney was examined sonographically, and a site chosen for percutaneous biopsy. The overlying sk in was prepped and draped in a sterile fashion. 1% lidocained was instilled down to the level of the renal capsule. Under direct sonographic guidance, an introducer needle was then advanced into the k idney, through which core biopsies were obtained with a separate needle. Metcalf were then removed, and a dressing applied to the biopsy site. The attending physician was present, and personally perfo rmed the procedure. COMPARISON: [facility], , US ABDOMEN, 12/29/2016, 12:06. [facility], , S RENAL, 12/27/2016, 15:18. FINDINGS: Biopsy site: Left kidney. Needle: Temno biopsy needle with introducer trocar. Number of passes: 4 Medications: 1% lidocaine for local anaesthesia. Complications: None. Laboratories: Samples sent to the [facility] per established protocol. IMPRESSION: Successful ultrasound-guided biopsy of the kidney, with pathology results pending. Dictated by: Be BANGURA Interpreted: Baltazar Rose MD on 01/01/2017 at 13:30 Transcribed by: ALISSA on 01/01/2017 at 13:31 Approved by: Baltazar Rose M.D. on 01/01/2017 at 16:28
[2017-01-01] MEDS ORDERED: DARBEPOETIN ALFA 100 MCG/0.5 ML SUBQ ONE (13:40)
[2017-01-01] MEDS ORDERED: Darbepoetin Alfa (ESRD) 40 mCg/0.4 mL Inj SUBQ ONE (13:50)
[2017-01-01] MEDS ORDERED: DARBEPOETIN ALFA 25 MCG/0.42 ML SUBQ ONE (13:50)
--- NOTE | 2017-01-01 15:18 | PCM.PNMED ---
Subjective Date of Service January 01, 2017 Subjective Nicole Patel is a 21-year-old female with history of hypertension and anemia who was sent to [facility] emergency room by her primary care physician due to a markedly elevated BUN and creatinine after patient visited her PCP complaining of months of headache, fatigue, tiredness and intermittent abdominal pain. Currently under treatment for newly diagnosed ESRD on HD, hemolytic anemia. Today: Patient complains of generalized weakness, chronic headaches. She will have kidney biopsy today. Exam Vital Signs Vital Sign - Last Date Time Temp Pulse Resp B/P Pulse Ox O2 Delivery O2 Flow Rate FiO2 01/01/17 12:15 76 14 140/91 95 Room Air 01/01/17 08:27 36.7 12/31/16 12:48 2.00 Intake and Output 12/31/16 12/31/16 01/01/17 Cumulative From/Thru 15:00 23:00 07:00 12/27/16 13:35 - 01/01/17 06:06 Intake Total 1130 ml 220 ml 4683 ml Output Total 100 ml 800 ml 4975 ml Balance 1030 ml -580 ml -292 ml Intake Oral 1100 ml 200 ml 3400 ml IV Total 30 ml 20 ml 783 ml Packed Cells 500 ml Output Urine Total 100 ml 800 ml 3175 ml Ultrafiltrate 1800 ml # Voids 3 2 7 # Bowel Movements 1 3 Exam PHYSICAL EXAM: GENERAL: Alert, not in distress, cooperative HEAD: atraumatic, normocephalic, no bruises. EYES: MARY, EOMI, anicteric, able to fully open and close eyelids SKIN: Skin color normal, turgor normal. No visible rashes or lesions. EAR, NOSE, MOUTH, THROAT: Lips, oral mucosa, tongue gums, oropharynx are moist pink NECK: no jugulovenous distention; ROM normal. RESPIRATORY: Lungs clear to auscultation. Good diaphragmatic excursion. CARDIAC: normal S1 and S2; no rubs, murmurs, or gallops; regular rate and rhythm ABDOMEN: Abdomen soft, non-tender. BS normal. No masses or organomegaly. MUSCULOSKELETAL: ROM full, muscles are not tende EXTREMITIES: No pitting edema in LE, no deformities, clubbing or no skin discoloration. NEURO: Alert, oriented X 3, Sensation grossly intact., Cranial nerves II-XII intact, Grossly normal motor function. PULSES: 2+ radial, 2+ carotid REVIEW OF SYSTEMS: GENERAL: +++ malaise, no fevers., SEE HPI HEENT: No changes in hearing or vision, no nose bleeds or other nasal problems NECK: Negative for lumps, goiter, pain and significant neck swelling All other reviewed and negative other than HPI. Lab and Diagnostics Result Diagram: 01/01/17 1435 01/01/17 0730 X-Rays, CTs and MRIs US RENAL SONOGRAM IMPRESSION: 1. Bilateral renal atrophy, cortical thinning as well as increased renal cortical echogenicity suggesting medical renal disease. No hydronephrosis is seen. Dictated by: Be BANGURA Interpreted: Rose Easley MD on 12/27/2016 at 16: 39 US ABDOMEN IMPRESSION: 1. Abnormal appearance of the kidneys redemonstrated consistent with medical renal disease. Dictated by: Be BANGURA Interpreted: Kaushik Robin MD on 12/29/2016 at 13 :25 Cardiac Echo Impressions Interpretation Summary The left ventricle is normal in size, wall thickness, and systolic function without any focal wall motion abnormalities. The ejection fraction is estimated to be 55-60%. The right ventricle is normal in size and function. The right ventricular systolic pressure is estimated at 34 mmHg assuming a right atrial pressure of 8 mm Hg. The left atrium is mildly dilated. Right atrial size is normal. There is no significant valvular heart disease. The aortic root is normal size. Assessment & Plan Nicole Patel is a 21-year-old female with history of hypertension and anemia who was sent to [facility] emergency room by her primary care physician due to a markedly elevated BUN and creatinine after patient visited her PCP complaining of months of headache, fatigue, tiredness and intermittent abdominal pain. Currently under treatment for newly diagnosed ESRD on HD, hemolytic anemia. Acute renal failure on chronic kidney disease, present of the time admission and ongoing. 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 - Patient has known hypertension and may have hypertensive nephrosclerosis. 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 - Rule out autoimmune disease and/or connective tissue disease. The patient's DOMINIQUE is positive. However, is nonspecific in nature. - Rule out toxic effects of medications that she has been taking from [place]. - Nephrology and Hem/Onc consulted, appreciate time and expertise. - Tunneled hemodialysis catheter was placed - Hemodialysis as per nephrology recommendation, BMP daily. - Follow up with customer data technician and inbound ingredient logistics specialist. - Renal biopsy today Hemolytic anemia, unclear etiology. S/P 2 units of PRBC - HB is trending down -Hematology is on the case -Monitor for signs of bleeding and transfuse if Hb is less than 7 and patient or POA (next of sravan) consents to transfusion, monitor CBC daily -Follow up pending studies Chronic Headaches, general malaise, present at the time of admission and ongoing. This is likely secondary to the above. - Stable Secondary hyperparathyroidism due to chronic kidney disease - Continue with current meds Hyperuricemia secondary to above - Allopurinol DVT prophylaxis - sequential compression devices Disposition: Anticipate patient will be in the hospital for the evaluation and the treatment of the above complicated conditions. GI Prophylaxis: Not indicated VTE Prophylaxis: Sub-Q Heparin (Unfractionated) Resuscitation Status: CPR: Attempt Resuscitation Time spent 35 min Edmundo Ellis MD January 01, 2017 15:18
--- NOTE | 2017-01-01 16:20 | NUR ---
Dialysis note: 3 hr tx, Net UF 1000. Right tunneled cath accessed A- A, V-V. QB 300 per orders. Pressure dressing on cath site, no bleeding noted. Dressing removed, cleaned with chloroprep, CHG applied. No drainage during cleaning. Renal biopsy site assessed: No swelling, redness, or drainage noted. Aranesp 60 mcg given as ordered. Pt stable and alert throughout tx. Site dwelled with Heparin 1000 and secured with caps. Please see DTR for complete record of VS. Pt returned to floor stable.
--- NOTE | 2017-01-01 16:24 | NUR ---
Transfer to 2006 Patient received dialysis. Denies pain at biopsy site. Bandaid clean, dry , intact. No swelling at site. Discussed plan of care with facilities officer present. All questions answered. Transported to room 2006 in hospital bed, with at bedside.
[2017-01-01] MEDS ORDERED: Desmopressin Inj 20 MCG in 0.9% Sodium Chloride 50 ML IV SCH (16:30)
[2017-01-01] MEDS: Multivit-Miner-Folic Acid-Iron Tablet PO SCH (17:39)
--- NOTE | 2017-01-01 18:28 | NUR ---
Post Dialysis Patient returned to room via bed, awake a/o x 4, denies pain, nausea or sob. Tunnel cath drsg c/d/i. Bandaid on left posterior back c/d/i post biopsy. Patient oob amb to bathroom with sba clyde well. Family at bedside assisting with care. Assessment done using hosp interpreting staff.
[2017-01-02] VITALS (10 sets, daily range): BP systolic 113–154; BP diastolic 66–108; PULSE 64–146; RESP 16–24; O2SAT 94–99
--- NOTE | 2017-01-02 05:36 | NUR ---
Numbness/Tingling / Blood Pressure Pt denied any pain at HS; reported feeling comfortable. HS BP elevated with 150s systolic, MD villafana, IV desmopressin held. At approx. 0030, pt c/o new onset numbness/tingling to waist down and requested sleep medication; when asked about pain, pt reported "poquito" pain to biopsy site, rating 4/10. Pt urinating regularly throughout shift, no hematuria noted. MD villafana, STAT abdomen and pelvis CT ordered and obtained. After returning from CT, pt c/o severe TEJADA; Tylenol administered with relief upon reassessment; pt sleeping throughout rest of shift. Tele SR 70s.
[2017-01-02 08:17] LABS: Vitamin B12 >1999 pg/mL (211-946)
[2017-01-02 08:26] LABS: BASOPHILS % (AUTO) 0 % (0-3); EOSINOPHILS % (AUTO) 0 % (0-5); MONOCYTES % (AUTO) 1.6 % (4-12); NEUTROPHILS % (AUTO) 92.4 % (40-74); Platelet Count 107 bil/L (150-400)
[2017-01-02] MEDS: 0.9% Sodium Chloride 250 ML IV SCH (08:30)
--- NOTE | 2017-01-02 08:44 | DRSVH ---
PROCEDURE: CT ABDOMEN AND PELVIS WITHOUT CONTRAST ([id number]) INDICATIONS: numbness tingling LE TECHNIQUE: Noncontrast 5 mm thick sections acquired from the diaphragms to the symphysis. 5 mm coronal and sagi ttal reformats were then performed. For radiation dose reduction, the following was used: automated exposure control, adjustment of mA and/or kV according to patient size. COMPARISON: [facility], US, US ABDOMEN, 12/29/2016, 12:06. FINDINGS: Image quality: Excellent. ABDOMEN: Lung bases: Dependent bilateral lower lobe atelectasis. Lung bases are otherwise clear. Heart size i s normal. Solid organs: Liver and spleen are normal in size. Gallbladder is contracted Pancreas is normal in contours. No adrenal nodules. Kidneys are normal in size, without hydronephrosis or nephrolithiasis . Peritoneum and bowel: Unenhanced bowel loops demonstrate normal wall thickness and caliber. No free fluid or air. Several small appendicoliths are present. The appendix does not appear to be distended . Nodes and vessels: No retroperitoneal or mesenteric adenopathy by size criteria. Aorta and inferior vena cava are normal in caliber. Miscellaneous: No ventral hernias. PELVIS: Genitourinary: Bladder wall thickness is normal. An intrauterine device is present. 43 mm diameter right adnexal cyst. Miscellaneous: No inguinal hernias or adenopathy. Bones: No suspicious bony lesions. No vertebral body compression fractures. IMPRESSION: 1. Appendicoliths are present, without evidence of appendicitis. 2. 43 mm diameter right adnexal cyst. Followup ultrasound examination in 6 weeks is recommended to en sure resolution. 3. Contracted gallbladder. 4. Concordant with preliminary interpretation. Dictated by: Cy Sharp M.D. on 01/02/2017 at 8:36 Approved by: Cy Sharp M.D. on 01/02/2017 at 8:42
[2017-01-02] MEDS: Multivit-Miner-Folic Acid-Iron Tablet PO SCH (09:56)
[2017-01-02] MEDS: Sodium Chloride LOK Flush 10 mL Syringe IVFLUSH SCH ×3 (09:57→22:10)
[2017-01-02] MEDS: MethylprednisoLONE Sodium Succinate 62.5 mg/mL 2 mL Inj IVPUSH SCH ×2 (09:57→22:10)
[2017-01-02] MEDS: Heparin 5,000 Unit/mL Inj SUBQ SCH ×2 (09:57→22:10)
--- NOTE | 2017-01-02 12:07 | PCM.PNNEPH ---
Subjective Date of Service January 02, 2017 Subjective s/p kidney biopsy yesterday, no complications. Hb stable. HD yesterday without complications. Denies any pain, no CP/SOB. Exam Vital Signs Vital Sign - Last Date Time Temp Pulse Resp B/P Pulse Ox O2 Delivery O2 Flow Rate FiO2 01/02/17 11:00 67 01/02/17 08:07 36.3 16 141/95 98 Room Air 12/31/16 12:48 2.00 Intake and Output 01/01/17 01/01/17 01/02/17 Cumulative From/Thru 15:00 23:00 07:00 12/27/16 13:35 - 01/02/17 05:49 Intake Total 460 ml 300 ml 5443 ml Output Total 1650 ml 300 ml 6925 ml Balance -1190 ml 0 ml -1482 ml Intake Oral 460 ml 300 ml 4160 ml IV Total 783 ml Packed Cells 500 ml Output Urine Total 650 ml 300 ml 4125 ml Ultrafiltrate 1000 ml 2800 ml # Voids 1 2 10 # Bowel Movements 1 4 Exam GENERAL: AAOx3, NAD, lying in bed comfortably, weak. HEENT: Atraumatic, normocephalic, PERRLA, EOMI, anicteric, no JVD, no LAD. CARDIAC: normal S1 and S2; no rubs, murmurs, or gallops, RRR. Lungs: Clear to auscultation. No wheezing, no rhonchi. ABDOMEN: Abdomen soft, non-tender. BS normal. No masses or organomegaly. EXTREMITIES: no pitting edema, no deformities, clubbing. Skin: no rash, no excoriation, no discoloration. Lab and Diagnostics Result Diagram: 01/02/17 0230 01/02/17 0230 X-Rays, CTs and MRIs US RENAL SONOGRAM IMPRESSION: 1. Bilateral renal atrophy, cortical thinning as well as increased renal cortical echogenicity suggesting medical renal disease. No hydronephrosis is seen. Dictated by: Be BANGURA Interpreted: Rose Easley MD on 12/27/2016 at 16: 39 US ABDOMEN IMPRESSION: 1. Abnormal appearance of the kidneys redemonstrated consistent with medical renal disease. Dictated by: Be BANGURA Interpreted: Kaushik Robin MD on 12/29/2016 at 13 :25 Cardiac Echo Impressions Interpretation Summary The left ventricle is normal in size, wall thickness, and systolic function without any focal wall motion abnormalities. The ejection fraction is estimated to be 55-60%. The right ventricle is normal in size and function. The right ventricular systolic pressure is estimated at 34 mmHg assuming a right atrial pressure of 8 mm Hg. The left atrium is mildly dilated. Right atrial size is normal. There is no significant valvular heart disease. The aortic root is normal size. Plan Impression 1. Severe renal insufficiency likely ESRD. s/p tunneled cath placement, first HD on 12/29/16. The etiology to be determined. s/p kidney biopsy, result pending. 2. Nephrotic-range proteinuria. - Positive DOMINIQUE/Anti-RO - Low C3. 3. Hemolytic anemia. w/u pending. s/p 2u PRBCs. 4. Hypertension with hypertensive heart disease and hypertensive nephrosclerosis 5. Secondary hyperparathyroidism. Plan: Path report pending. Next HD in am. Continue IV solu-medrol. Jacy Banks MD January 02, 2017 12:07
[2017-01-02 12:09] LABS: Hgb A 97.3 % (94.0-98.0)
--- NOTE | 2017-01-02 14:29 | NUR ---
Social Work Note: Continued Discharge Planning Data& Assessment: EMR reviewed. Pt is on day 6 of inpt hospitalization for acute renal failure. Pt is awaiting for [facility]. SW met with pt and pt family at bedside to check in and assess for any unmet needs with the assistance of the electronic jet man stick. Pt expressed concern over potential hospital bills. Pt was provided with [place] Financial assistance application. Pt also provided with [place] Advance Directive/DPOA information to review when possible. Pt confirmed she has transportation home when medically ready. Pt asked various questions regarding her how active she is able to be at home and her diet restrictions. MD notified. Pt and pt family deny any other needs at this time. SW to continue to follow if any other needs arise. Plan: Anticipated discharge home via POV when medically ready with manager intermediate dialysis treatments arranged by nephrology. Pt and pt family deny any other needs at this time. SW to continue to follow if any other needs arise. ANUM Teague
--- NOTE | 2017-01-02 14:40 | PCM.PNMED ---
Subjective Date of Service January 02, 2017 Subjective She is doing well today. She denies any shortness of breath or chest pain. No nausea or vomiting. No diarrhea. She does feel a little weak. No overnight events. Exam Vital Signs Vital Sign - Last Date Time Temp Pulse Resp B/P Pulse Ox O2 Delivery O2 Flow Rate FiO2 01/02/17 12:25 36.3 146 24 113/66 94 Nasal Cannula 3.00 Intake and Output 01/01/17 01/01/17 01/02/17 Cumulative From/Thru 15:00 23:00 07:00 12/27/16 13:35 - 01/02/17 05:49 Intake Total 460 ml 300 ml 5443 ml Output Total 1650 ml 300 ml 6925 ml Balance -1190 ml 0 ml -1482 ml Intake Oral 460 ml 300 ml 4160 ml IV Total 783 ml Packed Cells 500 ml Output Urine Total 650 ml 300 ml 4125 ml Ultrafiltrate 1000 ml 2800 ml # Voids 1 2 10 # Bowel Movements 1 4 Exam Alert and oriented -3, no distress. Fluent speech Anicteric sclera. Lungs are clear with normal rate and effort Heart is regular without murmur gallop or rub Abdomen soft nontender, flat Extremities are free of edema. Skin is free of rash or lesions. IVs and Medications Medications Reviewed: Medications were reviewed in detail Lab and Diagnostics Result Diagram: 01/02/17 0230 01/02/17 0230 X-Rays, CTs and MRIs US RENAL SONOGRAM IMPRESSION: 1. Bilateral renal atrophy, cortical thinning as well as increased renal cortical echogenicity suggesting medical renal disease. No hydronephrosis is seen. Dictated by: Be BANGURA Interpreted: Rose Easley MD on 12/27/2016 at 16: 39 US ABDOMEN IMPRESSION: 1. Abnormal appearance of the kidneys redemonstrated consistent with medical renal disease. Dictated by: Be BANGURA Interpreted: Kaushik Robin MD on 12/29/2016 at 13 :25 Cardiac Echo Impressions Interpretation Summary The left ventricle is normal in size, wall thickness, and systolic function without any focal wall motion abnormalities. The ejection fraction is estimated to be 55-60%. The right ventricle is normal in size and function. The right ventricular systolic pressure is estimated at 34 mmHg assuming a right atrial pressure of 8 mm Hg. The left atrium is mildly dilated. Right atrial size is normal. There is no significant valvular heart disease. The aortic root is normal size. Assessment & Plan Nicole Patel is a 21-year-old female with history of hypertension and anemia who was sent to [facility] emergency room by her primary care physician due to a markedly elevated BUN and creatinine after patient visited her PCP complaining of months of headache, fatigue, tiredness and intermittent abdominal pain. Currently under treatment for newly diagnosed ESRD on HD, hemolytic anemia. #. Acute renal failure on chronic kidney disease, present of the time admission and ongoing. 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 - Patient has known hypertension and may have hypertensive nephrosclerosis. 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 - Rule out autoimmune disease and/or connective tissue disease. The patient's DOMINIQUE is positive. However, is nonspecific in nature. - Rule out toxic effects of medications that she has been taking from [place]. - Nephrology and Hem/Onc consulted, appreciate time and expertise. - Tunneled hemodialysis catheter was placed - Hemodialysis as per nephrology recommendation, BMP daily. - Follow up with bone process operator and knife changer. - Renal biopsy yesterday, the biopsy results will likely be available by tomorrow. She was dialyzed 3 days in a row through yesterday. She will be dialyzed again tomorrow on time possibly go home after that with outpatient dialysis and further workup. #. Hemolytic anemia, unclear etiology. S/P 2 units of PRBC - HB is trending down -Hematology is on the case -Monitor for signs of bleeding and transfuse if Hb is less than 7 and patient or POA (next of sravan) consents to transfusion, monitor CBC daily -Follow up pending studies. She does have normal iron and B12 as well as folate stores. Initial studies do indicate hemolytic anemia. #. Chronic Headaches, general malaise, present at the time of admission and ongoing. This is likely secondary to the above. - Stable and no further workup at this point. Secondary hyperparathyroidism due to chronic kidney disease - Continue with current meds Hyperuricemia secondary to above - Allopurinol DVT prophylaxis - sequential compression devices Disposition: She will likely discharge home tomorrow after dialysis with ongoing outpatient workup. GI Prophylaxis: Not indicated VTE Prophylaxis: Sub-Q Heparin (Unfractionated) Resuscitation Status: CPR: Attempt Resuscitation Hakeem Sheffield MD January 02, 2017 14:40
--- NOTE | 2017-01-02 15:55 | PROG NOTE ---
[address] [address] PROGRESS NOTE PATIENT: KAELYN MCKENZIE : 1995 MR#: [id number] ADMIT: 12/27/2016 JOB ID: [id number] DATE: 01/02/2017 SUBJECTIVE: The patient is a 21-year-old woman hospitalized with hemolytic anemia and renal failure. She has received dialysis on Sunday, Sunday and again on Sunday after recent kidney biopsy. She is feeling a bit better. She had some mild nausea overnight. She has been afebrile. OBJECTIVE: Vitals: T 36.3, P 64, R 16, BP 141/95. HEENT: Conjunctivae slightly pale. Mucous membranes moist. No oral lesions. Nodes: No adenopathy in the neck or axilla. Chest: Clear. Cardiac examination: Regular rate and rhythm with normal S1, S2. 1/6 systolic ejection murmur across the precordium. Abdomen: Soft, nontender, with normoactive bowel tones. No splenomegaly or masses. Extremities: No edema. 2+ distal pulses. No calf tenderness. LABORATORIES: WBC 10.9, hemoglobin 9.7, hematocrit 28.4%, MCV 85, MCHC 34.2, platelets 107,000. Sed rate 27, haptoglobin less than 10, reticulocyte count 1.6%. Hemoglobin electrophoresis normal adult hemoglobin. Red cell osmotic fragility canceled. PNH testing pending. Sodium 127, potassium 5.5, BUN 42, creatinine 3.59. Glucose 137. LDH 353. B12 greater than 1999. Folate greater than 19.9. TSH 1.82. Parvovirus PCR testing-negative. Mycoplasma testing-pending. ASSESSMENT AND PLAN: Radha-negative hemolytic anemia: Direct anti globulin testing was negative, again making an autoimmune process unlikely. Hereditary testing for spherocytosis (osmotic fragility testing) was canceled. Please repeat this test, as this is a significant diagnostic consideration. However, virus testing was negative. Mycoplasma testing is pending. There was no evidence of B12 or folate deficiency. Her high ADAMT13 activity rules out TTP. She still could have a sugar toxin-producing E. coli-HUS. Await final results of stool PCR testing. If this is negative, then atypical HUS is a likely diagnosis. Await PNH testing. Hemoglobin electrophoresis was negative for thalassemia or other blood disorder. Await results of upcoming renal biopsy was, which was performed yesterday. I have a threshold for transfusion if hemoglobin is less than 7 or hematocrit less than 21%, but would only use washed irradiated blood products as she is a potential candidate for future kidney transplant.
--- NOTE | 2017-01-02 19:03 | NUR ---
Activity/D/C planning Patient a/o x 4, [place] speaking only, interpretor used throughout the shift. Patient c/o min head pain, but declined Tylenol. Patient denies nausea or sob. Amb in room with sba, clyde well. Patient cont to have min numbness in BLE, pedal pulses palpable. Right tunnel cath c/d/i. Taking diet well and clyde Renvela with meals. Plan for dialysis in a.m. and poss d/c home if outpt dialysis available. Patient and family informed of poc using hosp interpreting staff. VSS, tele SR.
[2017-01-02] MEDS: HYDROmorphone 0.5 mg/0.5 mL iSecure Syringe IVPUSH PRN (22:09)
[2017-01-02] MEDS: Ondansetron 2 mg/mL 2 mL Inj IVPUSH PRN (22:09)
[2017-01-03] VITALS (7 sets, daily range): BP systolic 146–159; BP diastolic 84–92; PULSE 64–90; RESP 15–16; O2SAT 97–98
--- NOTE | 2017-01-03 06:06 | NUR ---
Nausea / Pain Pt reported nausea and 6/10 TEJADA at HS; stated Tylenol was not effective for her pain - Dilaudid and Zofran given in addition to HS medications for symptomatic relief. Pt asleep on reassessment. Pt educated to POC for 01/03 and questions answered regarding discharge planning. VSS, tele SR 70s. Pt requested gauze and tape to cover tunnel catheter site r/t "itching"; 4x4s placed with foam tape - no further complaints.
[2017-01-03] MEDS: Sodium Chloride LOK Flush 10 mL Syringe IVFLUSH SCH ×3 (08:30→21:39)
[2017-01-03] MEDS: MethylprednisoLONE Sodium Succinate 62.5 mg/mL 2 mL Inj IVPUSH SCH ×2 (08:30→21:39)
[2017-01-03] MEDS: 0.9% Sodium Chloride 250 ML IV SCH (08:30)
--- NOTE | 2017-01-03 09:54 | NUR ---
Inpatient dialysis Patient arrived to [facility] for [place]. Report received from Daxa Bishop RN. brusher hand at bedside. Addendum: 01/03/17 at 1340 by LARS GRIER RN Returned to room 2006. Report given to Daxa Bishop RN.
[2017-01-03 09:59] LABS: BASOPHILS % (AUTO) 0.1 % (0-3); EOSINOPHILS % (AUTO) 0 % (0-5); Mean Corpuscular Hemoglobin 29.2 pg (27.0-35.0); Mean Corpuscular Volume 85.1 fL (81-100); NEUTROPHILS % (AUTO) 83.6 % (40-74); Platelet Count 133 bil/L (150-400)
--- NOTE | 2017-01-03 12:26 | PCM.PNNEPH ---
Subjective Date of Service January 03, 2017 Subjective Doing about the same, seen during HD. No acute issue overnight. Exam Vital Signs Vital Sign - Last Date Time Temp Pulse Resp B/P Pulse Ox O2 Delivery O2 Flow Rate FiO2 01/03/17 10:35 75 01/03/17 07:44 36.9 16 157/92 97 Room Air 01/02/17 12:25 3.00 Intake and Output 01/02/17 01/02/17 01/03/17 Cumulative From/Thru 15:00 23:00 07:00 12/27/16 13:35 - 01/03/17 06:21 Intake Total 920 ml 200 ml 6563 ml Output Total 150 ml 1050 ml 8125 ml Balance 770 ml -850 ml -1562 ml Intake Oral 920 ml 200 ml 5280 ml IV Total 783 ml Packed Cells 500 ml Output Urine Total 150 ml 1050 ml 5325 ml Ultrafiltrate 2800 ml # Voids 3 13 # Bowel Movements 1 2 7 Exam GENERAL: AAOx3, NAD, lying in bed comfortably. HEENT: Atraumatic, normocephalic, PERRLA, EOMI, anicteric, no JVD, no LAD. CARDIAC: normal S1 and S2; no rubs, murmurs, or gallops, RRR. Lungs: Clear to auscultation. No wheezing, no rhonchi. ABDOMEN: Abdomen soft, non-tender. BS normal. No masses or organomegaly. EXTREMITIES: no pitting edema, no deformities, clubbing. Skin: no rash, no excoriation, no discoloration. Right tunneled cath in place. Lab and Diagnostics Result Diagram: 01/03/17 0935 01/03/17 0935 X-Rays, CTs and MRIs US RENAL SONOGRAM IMPRESSION: 1. Bilateral renal atrophy, cortical thinning as well as increased renal cortical echogenicity suggesting medical renal disease. No hydronephrosis is seen. Dictated by: Be BANGURA Interpreted: Rose Easley MD on 12/27/2016 at 16: 39 US ABDOMEN IMPRESSION: 1. Abnormal appearance of the kidneys redemonstrated consistent with medical renal disease. Dictated by: Be BANGURA Interpreted: Kaushik Robin MD on 12/29/2016 at 13 :25 Cardiac Echo Impressions Interpretation Summary The left ventricle is normal in size, wall thickness, and systolic function without any focal wall motion abnormalities. The ejection fraction is estimated to be 55-60%. The right ventricle is normal in size and function. The right ventricular systolic pressure is estimated at 34 mmHg assuming a right atrial pressure of 8 mm Hg. The left atrium is mildly dilated. Right atrial size is normal. There is no significant valvular heart disease. The aortic root is normal size. Plan Impression 1. Severe renal insufficiency likely ESRD. s/p tunneled cath placement, first HD on 12/29/16. The etiology to be determined. s/p kidney biopsy, result pending. 2. Nephrotic-range proteinuria. - Positive DOMINIQUE/Anti-RO - Low C3. - ANCA panel ordered today. 3. Hemolytic anemia. s/p 2u PRBCs. negtive stool PCR panel suspected atypical HUS. I wonder if eculizumab is indicated, will discuss with Dr. Yan. 4. Hypertension with hypertensive heart disease and hypertensive nephrosclerosis 5. Secondary hyperparathyroidism. Plan: Next HD on Sunday. I wonder if eculizumab and plasmapheresis are indicated, will discuss with Dr. Yan. Send ANCA panel today. Pending result of osmotic fragility testing. Jacy Banks MD January 03, 2017 12:26
--- NOTE | 2017-01-03 12:45 | NUR ---
Dialysis note: 3 1/2 hours tx 1000 ml net UF Right catheter, dsg dry and intact Pls see DTR for VS details Qb 350 No heparin given O2 @ 2L via NC on during tx Tolerated tx, slept at intervals Catheter flushed, heparin dwelled and secured Stable condition at end of tx Report given to Roxy MCNEILL
[2017-01-03] MEDS: Multivit-Miner-Folic Acid-Iron Tablet PO SCH (14:17)
--- NOTE | 2017-01-03 14:17 | DRSVH ---
PROCEDURE: X-RAY CHEST ONE VIEW, PORTABLE ([id number]) INDICATIONS: KIDNEY DISEASE; PRE-DIALYSIS TECHNIQUE: One view of the chest was acquired. COMPARISON: None. FINDINGS: Surgical changes and devices: Right IJ double-lumen dialysis catheter present tip projected over the lower SVC. Lungs and pleura: No pleural effusions or pneumothorax. Lungs are clear, aside from mild streaky op acity involving the medial left lung base. Mediastinum: Mediastinal contours appear normal. Heart size is normal. Bones and chest wall: No suspicious bony lesions. Overlying soft tissues appear unremarkable. IMPRESSION: Atelectasis within the medial left lung base but developing pneumonia or aspiration canno t entirely be excluded. Recommend clinical correlation. Dictated by: Be BANGURA Interpreted: Ilya Foster MD on 01/03/2017 at 14:16 Transcribed by: LANI on 01/03/2017 at 14:17 Approved by: Ilya Foster M.D. on 01/05/2017 at 6:12
[2017-01-03] MEDS: Heparin 5,000 Unit/mL Inj SUBQ SCH ×2 (14:31→21:39)
--- NOTE | 2017-01-03 14:47 | NUR ---
NUTRITION FOLLOW-UP ASSESS: 21 YO female admitted with acute on chronic renal failure and hemolytic anemia. Pt is a new chronic dialysis pt. She is tolerating the renal diet well at 75-100% of most meals. Nephrology is following PMHx: Chronic renal disease, HTN, anemia. DIET: Renal. PO intake 75 - 100% all trays. LABS: Reviewed. Na 127, K 5.5, Cl 90, Bun 42, Literature Teacher 3.59, Glu 137, Ca 7.6 MEDICATIONS: Reviewed. Vitamin D3, MVI. GI symptoms / stool: BM x 2 (01/02). Skin Integrity: No issues reported. ANTHROPOMETRICS: Current Wt: 45.9 kg BMI: 19.1 kg/m2. Admit weight: 43.5 kg IBW: 47.7 kg ESTIMATED NEEDS (NEW DIALYSIS): Calories: 1375 - 1605 kcal (30 - 35 kcal / kg BW) Protein: 55 - 90 g protein ( 1.2 - 2.0 g/ kg BW) NUTRITION DIAGNOSIS: 1) Increased nutrient needs related to end-stage renal disease, as evidenced by need for chronic dialysis--PERSISTS INTERVENTION: 1) Continue to send Nepro on L tray MONITOR/EVALUATE: Diet tolerance, wt, PO intake, labs, GI/nutrition status. Follow up per moderate nutrition risk guidelines.
--- NOTE | 2017-01-03 16:07 | NUR ---
Social Work Note: Continued Discharge Planning Data& Assessment: SW spoke with Dialysis SW who explained pt first appointment is tomorrow morning at 11am but her regular schedule will be Sunday, Sunday, Sunday with a 5:30 check in and dialysis from 6-9p.m. RN aware, pt aware and Dialysis SW explained she will come by pt room today to check in and go over information with pt as well. SW provided pt with new statistical financial analyst application per pt family request. No other discharge needs identified. Plan: Anticipated discharge home via POV when medically ready with [facility] on a , , schedule and our [facility]. SW to continue to follow if any needs arise. ANUM Teague
--- NOTE | 2017-01-03 16:16 | PCM.PNMED ---
Subjective Date of Service January 03, 2017 Subjective She is doing well today. No nausea or vomiting. No chest pain, palpitations or shortness of breath. No diarrhea. No overnight events. She tolerated dialysis today without difficulty. Exam Vital Signs Vital Sign - Last Date Time Temp Pulse Resp B/P Pulse Ox O2 Delivery O2 Flow Rate FiO2 01/03/17 15:37 36.6 77 15 149/91 98 Room Air 01/02/17 12:25 3.00 Intake and Output 01/02/17 01/02/17 01/03/17 Cumulative From/Thru 15:00 23:00 07:00 12/27/16 13:35 - 01/03/17 06:21 Intake Total 920 ml 200 ml 6563 ml Output Total 150 ml 1050 ml 8125 ml Balance 770 ml -850 ml -1562 ml Intake Oral 920 ml 200 ml 5280 ml IV Total 783 ml Packed Cells 500 ml Output Urine Total 150 ml 1050 ml 5325 ml Ultrafiltrate 2800 ml # Voids 3 13 # Bowel Movements 1 2 7 Exam Alert and oriented -3, no distress. Fluent speech Anicteric sclera. Lungs are clear with normal rate and effort Heart is regular without murmur gallop or rub Abdomen soft nontender, flat Extremities are free of edema. Skin is free of rash or lesions. Right chest dialysis catheter IVs and Medications Medications Reviewed: Medications were reviewed in detail Lab and Diagnostics Result Diagram: 01/03/17 0935 01/03/17 0935 X-Rays, CTs and MRIs US RENAL SONOGRAM IMPRESSION: 1. Bilateral renal atrophy, cortical thinning as well as increased renal cortical echogenicity suggesting medical renal disease. No hydronephrosis is seen. Dictated by: Be BANGURA Interpreted: Rose Easley MD on 12/27/2016 at 16: 39 US ABDOMEN IMPRESSION: 1. Abnormal appearance of the kidneys redemonstrated consistent with medical renal disease. Dictated by: Be BANGURA Interpreted: Kaushik Robin MD on 12/29/2016 at 13 :25 Cardiac Echo Impressions Interpretation Summary The left ventricle is normal in size, wall thickness, and systolic function without any focal wall motion abnormalities. The ejection fraction is estimated to be 55-60%. The right ventricle is normal in size and function. The right ventricular systolic pressure is estimated at 34 mmHg assuming a right atrial pressure of 8 mm Hg. The left atrium is mildly dilated. Right atrial size is normal. There is no significant valvular heart disease. The aortic root is normal size. Assessment & Plan Nicole Patel is a 21-year-old female with history of hypertension and anemia who was sent to [facility] emergency room by her primary care physician due to a markedly elevated BUN and creatinine after patient visited her PCP complaining of months of headache, fatigue, tiredness and intermittent abdominal pain. Currently under treatment for newly diagnosed ESRD on HD, hemolytic anemia. #. Acute renal failure on chronic kidney disease, present of the time admission and ongoing. 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 - Patient has known hypertension and may have hypertensive nephrosclerosis. 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 - Rule out autoimmune disease and/or connective tissue disease. The patient's DOMINIQUE is positive. However, is nonspecific in nature. - Rule out toxic effects of medications that she has been taking from [place]. - Nephrology and Hem/Onc consulted, appreciate time and expertise. - Tunneled hemodialysis catheter was placed - Hemodialysis as per nephrology recommendation, BMP daily. - Follow up with primary special educator and range management specialist. - Renal biopsy yesterday, the biopsy results will likely be available soon. Dr. Yan is concerned about atypical hemolytic uremic syndrome and has one complement based test pending like to hold discharge in case treatment for HUS is indicated which would include initially a pheresis. She was dialyzed today and her next treatment will be Sunday. #. Hemolytic anemia, unclear etiology. S/P 2 units of PRBC - HB is trending down -Hematology is on the case -Monitor for signs of bleeding and transfuse if Hb is less than 7 and patient or POA (next of sravan) consents to transfusion, monitor CBC daily -Follow up pending studies. She does have normal iron and B12 as well as folate stores. Initial studies do indicate hemolytic anemia. Her labs remained stable and the concern is for possible atypical HUS as outlined above. One last study is pending. #. Hypertension, POA. The patient will be started on amlodipine 5 mg today as she continues to be moderately hypertensive. #. Chronic Headaches, general malaise, present at the time of admission and ongoing. This is likely secondary to the above. - Stable and no further workup at this point. Secondary hyperparathyroidism due to chronic kidney disease - Continue with current meds Hyperuricemia secondary to above - Allopurinol DVT prophylaxis - sequential compression devices Disposition: She will likely discharge home tomorrow after dialysis with ongoing outpatient workup. GI Prophylaxis: Not indicated VTE Prophylaxis: Sub-Q Heparin (Unfractionated) Resuscitation Status: CPR: Attempt Resuscitation Hakeem Sheffield MD January 03, 2017 16:16
--- NOTE | 2017-01-03 17:57 | NUR ---
Dialysis/HTN Patient a/o x 3, c/o min headache, Tylenol given prior to dialysis. Patient over to dialysis at 0845 and returned to room at 1300. Patient up in room with family assist, steady gait and denies BLE numbness. Right tunnel cath drsg c/d/i. Taking diet fair. Tele SR. B/P 178/108 at end of dialysis, notified and new meds ordered.
--- NOTE | 2017-01-03 19:12 | PROG NOTE ---
[address] [address] PROGRESS NOTE PATIENT: KAELYN MCKENZIE : 1995 MR#: [id number] ADMIT: 12/27/2016 JOB ID: [id number] DATE: 01/03/2017 SUBJECTIVE: The patient is a 21-year-old woman hospitalized with hemolytic anemia and renal failure. She is undergoing renal dialysis, but still has evidence of renal failure. She is feeling a bit stronger this morning. She is hoping to go home in the near future. No active nausea or vomiting. OBJECTIVE: Vitals: T 36.9, P 90, R 16, BP 157/92. HEENT: Conjunctivae slightly pale. Mucous membranes moist. Chest is clear. Cardiac exam: Regular rate and rhythm. Abdomen: Soft, nontender. Extremities: No edema. 2+ distal pulses. No calf tenderness. LABORATORY DATA: WBC 9.2, hemoglobin 9.4, hematocrit 27.4%, platelets 133,000. Red cell osmotic fragility testing - pending. PMH testing - pending. ASSESSMENT AND PLAN: Radha negative hemolytic anemia: Direct antiglobulin testing was negative. Hereditary testing for spherocytosis (osmotic fragility testing) has been reordered. No evidence of B12 or folate deficiency. No evidence of parvovirus. [id number] activity was normal. Testing for Shiga toxin-producing E. coli was negative. 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 Await PMH testing. I have requested a send out test for aHUS complement panel from serum and plasma, which should be sent to the [facility]. Await results of recent renal biopsy. No indication for transfusion today. However, if she develops symptomatic anemia or hemoglobin less than 7/hematocrit less than 21%, consider additional transfusion with washed irradiated blood products. She is a potential candidate for future kidney transplant.
[2017-01-04 03:47] VITALS: BP 119/81; PULSE 71; RESP 15; O2SAT 96
[2017-01-04] MEDS ORDERED: HYDROmorphone 1 mg/mL Inj IVPUSH PRN (05:11)
[2017-01-04 05:24] VITALS: BP 128/86; PULSE 62
[2017-01-04 05:35] VITALS: PULSE 75
[2017-01-04 06:13] LABS: Mycoplasma pneumoniae, PCR Negative (Negative)
--- NOTE | 2017-01-04 06:19 | NUR ---
Pain Pt c/o pain of 8/10 this AM to head. VSS at time of complaint. Pt initially denied interventions for pain management because "the pain usually fades after [she] sleeps"; after discussion, agreeable to Tylenol. Upon reassessment, Tylenol ineffective for pain, Dilaudid requested by pt. Pt reported 0.5mg IVP Dilaudid reduced TEJADA from 8/10 to 2/10. Pt verbalized concern about utilizing pain medication while in hospital since these medications would not be available at home - encouraged to address headaches outpatient with doctor, since pt stated these headaches are common for her. VSS. Tele SR 60s-90s.
[2017-01-04 08:00] VITALS: PULSE 77
[2017-01-04] MEDS: 0.9% Sodium Chloride 250 ML IV SCH (08:30)
--- NOTE | 2017-01-04 08:32 | PROG NOTE ---
[address] [address] PROGRESS NOTE PATIENT: KAELYN MCKENZIE : 1995 MR#: [id number] ADMIT: 12/27/2016 JOB ID: [id number] DATE: 01/04/2017 SUBJECTIVE: The patient is a 21-year-old woman with Radha negative hemolytic anemia and renal failure. She continues to undergo dialysis per the nephrology team. She is hoping to go home. No fevers. She is using Tylenol and occasional Dilaudid for pain, which includes a headache and occasional chest pain. She denies any bleeding. OBJECTIVE: Vitals: T 36.8, P 71, R 15, BP 119/81, O2 saturation 96% on room air. HEENT: Conjunctivae slightly pale. Mucous membranes moist. Chest: Clear. No wheezes. Cardiac examination: Regular rate and rhythm. Abdomen: Soft, nontender. Normoactive bowel tones. Extremities: No edema. 2+ distal pulses. LABORATORIES: Testing for aHUS complement panel has been sent out. ASSESSMENT AND PLAN: Radha negative hemolytic anemia: Direct anticoagulant testing was negative. Osmotic fragility testing for a hereditary spherocytosis is pending. No evidence of B12 or folate deficiency. No evidence of parvovirus. [id number] activity was normal. There was no evidence of Shiga toxin-producing E. coli. Await PNH testing. Await aHUF complement testing. Await results of recent renal biopsy. No indication for transfusion support at this time, but any future transfusions should use irradiated washed blood products, as she is a potential candidate for renal transplant. Please [facility] with Dr. Yan in 7-10 days. We will check CBC, differential, platelets, and CMP at that time, and review results of the above testing. If aHUS is confirmed, then I would treat her with eculizumab.
[2017-01-04 08:35] VITALS: BP 126/89; PULSE 66; RESP 16; O2SAT 97
[2017-01-04] MEDS: MethylprednisoLONE Sodium Succinate 62.5 mg/mL 2 mL Inj IVPUSH SCH ×2 (08:42→08:56)
[2017-01-04] MEDS: Heparin 5,000 Unit/mL Inj SUBQ SCH ×2 (08:43→08:55)
[2017-01-04] MEDS: Multivit-Miner-Folic Acid-Iron Tablet PO SCH (08:44)
[2017-01-04] MEDS: Sodium Chloride LOK Flush 10 mL Syringe IVFLUSH SCH (08:57)
[2017-01-04 11:35] VITALS: BP 136/97; PULSE 71; RESP 16; O2SAT 97
--- NOTE | 2017-01-04 11:57 | PCM.PNNEPH ---
Subjective Date of Service January 04, 2017 Subjective HD yesterday without complications. Kidney biopsy showed glomerulosclerosis, no crescentic formation, no full house pattern, pending official report. Exam Vital Signs Vital Sign - Last Date Time Temp Pulse Resp B/P Pulse Ox O2 Delivery O2 Flow Rate FiO2 01/04/17 11:35 36.6 71 16 136/97 97 Room Air 01/02/17 12:25 3.00 Intake and Output 01/03/17 01/03/17 01/04/17 Cumulative From/Thru 15:00 23:00 07:00 12/27/16 13:35 - 01/04/17 06:03 Intake Total 720 ml 1000 ml 8283 ml Output Total 1000 ml 700 ml 950 ml 91370 ml Balance -1000 ml 20 ml 50 ml -2492 ml Intake Oral 720 ml 1000 ml 7000 ml IV Total 783 ml Packed Cells 500 ml Output Urine Total 700 ml 950 ml 6975 ml Ultrafiltrate 1000 ml 3800 ml # Voids 1 14 # Bowel Movements 1 0 8 Exam GENERAL: AAOx3, NAD, lying in bed comfortably. HEENT: Atraumatic, normocephalic, PERRLA, EOMI, anicteric, no JVD, no LAD. CARDIAC: normal S1 and S2; no rubs, murmurs, or gallops, RRR. Lungs: Clear to auscultation. No wheezing, no rhonchi. ABDOMEN: Abdomen soft, non-tender. BS normal. No masses or organomegaly. EXTREMITIES: no pitting edema, no deformities, clubbing. Skin: no rash, no excoriation, no discoloration. Right tunneled cath in place. Lab and Diagnostics Result Diagram: 01/03/17 0935 01/03/17 0935 X-Rays, CTs and MRIs US RENAL SONOGRAM IMPRESSION: 1. Bilateral renal atrophy, cortical thinning as well as increased renal cortical echogenicity suggesting medical renal disease. No hydronephrosis is seen. Dictated by: Be BANGURA Interpreted: Rose Easley MD on 12/27/2016 at 16: 39 US ABDOMEN IMPRESSION: 1. Abnormal appearance of the kidneys redemonstrated consistent with medical renal disease. Dictated by: Be BANGURA Interpreted: Kaushik Robin MD on 12/29/2016 at 13 :25 Cardiac Echo Impressions Interpretation Summary The left ventricle is normal in size, wall thickness, and systolic function without any focal wall motion abnormalities. The ejection fraction is estimated to be 55-60%. The right ventricle is normal in size and function. The right ventricular systolic pressure is estimated at 34 mmHg assuming a right atrial pressure of 8 mm Hg. The left atrium is mildly dilated. Right atrial size is normal. There is no significant valvular heart disease. The aortic root is normal size. Plan Impression 1. ESRD s/p tunneled cath placement, first HD on 12/29/16. The etiology to be determined. s/p kidney biopsy showed diffuse glomerulosclerosis, no crescentic formation, no full house pattern, pending official report. 2. Nephrotic-range proteinuria. - Positive DOMINIQUE/Anti-RO - Low C3. - ANCA panel ordered. 3. Hemolytic anemia. s/p 2u PRBCs. negtive stool PCR panel Atypical HUS is highly suspicious. F/u with Dr. Yan in 1 week. 4. Hypertension with hypertensive heart disease and hypertensive nephrosclerosis 5. Secondary hyperparathyroidism. Plan: Per renal standpoint, she can be d/c'd home. Rec Prednisone 40 mg daily, will taper off OP. Appt at [facility] [place] at 4PM tomorrow. F/u with Dr. Yan. Will refer to Transplant Center at for kidney transplant evaluation. Jacy Banks MD January 04, 2017 11:56
[2017-01-04 12:04] LABS: Mean Corpuscular Hemoglobin 29.1 pg (27.0-35.0); Mean Corpuscular Volume 85.5 fL (81-100)
[2017-01-04 12:11] LABS: PNH Viability 100% (.)
--- NOTE | 2017-01-04 12:11 | PCM.DIMED ---
Discharge Instructions Date of Service January 04, 2017 Dates of Hospitalization December 27, 2016 at 18:48 Discharge Diagnosis Discharge Diagnosis #. Acute renal failure on chronic kidney disease, started on hemodialysis. #. Hemolytic anemia, unclear etiology, stable. #. Hypertension, stable. #. Chronic Headaches. #. Secondary hyperparathyroidism , stable #. Hyperuricemia , stable. Diet Renal Diet Activity No restrictions Call your provider Fever or Chills, Shortness of breath Patient Instructions Kidney dialysis Center tomorrow, 01/04 at 4 PM Follow-up Provider: Rafal Yan MD Follow-up with PCP in: 1 week Hakeem Sheffield MD January 04, 2017 12:11
[2017-01-04] MEDS ORDERED: AMLO5TAB2 PO (12:13)
[2017-01-04] MEDS ORDERED: CHOL100043 PO (12:13)
[2017-01-04] MEDS ORDERED: FOLI1TAB18 PO (12:13)
[2017-01-04] MEDS ORDERED: ZYL100 PO (12:13)
[2017-01-04] MEDS ORDERED: PREN-100 PO (12:13)
[2017-01-04] MEDS ORDERED: PRE20 PO (12:13)
--- NOTE | 2017-01-04 14:29 | PCM.DC.MED ---
Discharge Summary Date of Service January 04, 2017 Dates of Hospitalization Date of Hospital Admission December 27, 2016 at 18:48 Date of Discharge: January 04, 2017 Providers: Admitting Physician: Anjel Hightower MD Primary Care Physician: Myrtle Bee MD Attending Physician: Anjel Hightower MD Diagnosis at Time of Discharge Diagnosis at Time of Discharge #. Acute renal failure on chronic kidney disease, started on hemodialysis. #. Hemolytic anemia, unclear etiology, stable. #. Hypertension, stable. #. Chronic Headaches. #. Secondary hyperparathyroidism , stable #. Hyperuricemia , stable. Consultations Nephrology, Dr. Taylor Hematology, Dr. Yan Procedures XRay, CTs & MRIs US RENAL SONOGRAM IMPRESSION: 1. Bilateral renal atrophy, cortical thinning as well as increased renal cortical echogenicity suggesting medical renal disease. No hydronephrosis is seen. Dictated by: Be BANGURA Interpreted: Rose Easley MD on 12/27/2016 at 16: 39 US ABDOMEN IMPRESSION: 1. Abnormal appearance of the kidneys redemonstrated consistent with medical renal disease. Dictated by: Be BANGURA Interpreted: Kaushik Robin MD on 12/29/2016 at 13 :25 Cardiac Echo Impression Interpretation Summary The left ventricle is normal in size, wall thickness, and systolic function without any focal wall motion abnormalities. The ejection fraction is estimated to be 55-60%. The right ventricle is normal in size and function. The right ventricular systolic pressure is estimated at 34 mmHg assuming a right atrial pressure of 8 mm Hg. The left atrium is mildly dilated. Right atrial size is normal. There is no significant valvular heart disease. The aortic root is normal size. Invasive Procedures Placement of temporary dialysis catheter Brief History The patient is a 21-year-old female history of hypertension and anemia who presented to [facility] emergency department due to abnormal labs drawn yesterday the day prior to admission. The patient was seen by her primary care physician Rohit Iraheta M.D. for symptoms including months of headache, fatigue, tiredness, and intermittent abdominal pain. Her PCP called her today the day of admission with lab results and referred her to [facility] emergency department due to poor kidney function. The patient became aware that there is a problem with her kidneys a few months ago. She takes vitamins regular but denies other daily medications. However amlodipine is on her medication list as well as vitamin D3 and reportedly she is taking metoprolol in the past. Patient was evaluated in the emergency room by Dr. Gonzalez Acevedo and her BUN was 99 and creatinine was 6.79. Dr. Taylor was constant acted and he recommended that the patient be admitted to the hospital service and he would consult for nephrology consultation. Patient was therefore admitted to the hospital service for further evaluation and treatment. Hospital Course Nicole Patel is a 21-year-old female with history of hypertension and anemia who was sent to [facility] emergency room by her primary care physician due to a markedly elevated BUN and creatinine after patient visited her PCP complaining of months of headache, fatigue, tiredness and intermittent abdominal pain. Currently under treatment for newly diagnosed ESRD on HD, hemolytic anemia. #. Acute renal failure on chronic kidney disease, present of the time admission and ongoing. 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 - Patient has known hypertension and may have hypertensive nephrosclerosis. 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 - Rule out autoimmune disease and/or connective tissue disease. The patient's DOMINIQUE is positive. However, is nonspecific in nature. - Rule out toxic effects of medications that she has been taking from [place]. - Nephrology and Hem/Onc consulted, appreciate time and expertise. - Tunneled hemodialysis catheter was placed - Hemodialysis as per nephrology recommendation, BMP daily. - Follow up with tool maintenance technician and topography technician. - Renal biopsy yesterday, the biopsy results will likely be available soon. The patient was treated with a temporary dialysis catheter and dialysis treatments while in the hospital. She received treatments 3 days in a row and then on Sunday. She did have some ongoing urine output. She received a renal biopsy which revealed a nonspecific pattern of nephrosclerosis. Serology was notable for positive DOMINIQUE. She was placed on empiric IV steroids. At the time of discharge nephrology requested prednisone orally. She will be given for today and this can be tapered at her follow-up appointment within the next week. She is scheduled to [facility] [place] at 4 PM. #. Hemolytic anemia, unclear etiology. S/P 2 units of PRBC - HB is trending down -Hematology is on the case -Monitor for signs of bleeding and transfuse if Hb is less than 7 and patient or POA (next of sravan) consents to transfusion, monitor CBC daily -Follow up pending studies. She does have normal iron and B12 as well as folate stores. Initial studies do indicate hemolytic anemia. Her labs remained stable and the concern is for possible atypical HUS as outlined above. One last study is pending. She was seen by Dr. Westbrook and had multiple tests including a negative direct Radha. She did have evidence of hemolytic anemia by generic testing. Several studies were pending at time of discharge including [facility] testing as well as atypical HUS testing. She will see Dr. Yan on January 11 40 a.m. At that point blood work will be repeated and further assessment will continue. #. Hypertension, POA. The patient will be started on amlodipine 5 mg today as she continues to be moderately hypertensive. She was started on amlodipine and thus will be continued the time of discharge. #. Chronic Headaches, general malaise, present at the time of admission and ongoing. This is likely secondary to the above. - Stable and no further workup at this point. She was advised to use Tylenol only for headaches and avoid any nonsteroidal anti-inflammatories. Secondary hyperparathyroidism due to chronic kidney disease - Continue with current meds Hyperuricemia secondary to above - Allopurinol was started will be continued. Exam Vital Signs (Last) Date Time Temp Pulse Resp B/P Pulse Ox O2 Delivery O2 Flow Rate FiO2 01/04/17 11:35 36.6 71 16 136/97 97 Room Air 01/02/17 12:25 3.00 Exam The patient was seen and examined on the day of discharge Test 12/27/16 14:33 12/27/16 15:24 12/27/16 19:20 12/28/16 03:00 Calcium (Send out) 6.7mg/dL (8.7-10.2) Thyroid Stimulating Hormone (TSH) 1.820uIU/mL (0.450-4.500) Parathyroid Hormone Interpretation Comment (.) Total Intact Parathyroid Hormone 264pg/mL (15-65) Urine Color Straw (YELLOW) Urine Appearance Hazy (CLEAR,HAZY) Urine pH 6.0 (5.0-8.0) Urine Specific [place] 1.010 (1.003-1.035) Urine Protein 100mg/dL (NEG,TRACE) Urine Glucose (UA) Negativemg/dL (NEGATIVE) Urine Ketones Negativemg/dL (NEGATIVE) Urine Occult Blood Moderate (NEGATIVE) Urine Nitrite Negative (NEGATIVE) Urine Bilirubin Negative (NEGATIVE) Urine Urobilinogen 0.2mg/dL (NORMAL) Urine Leukocyte Esterase Negative (NEGATIVE) Urine RBC 3-10/hpf (0-2) Urine WBC 0-5/hpf (0-5) Urine Epithelial Cells None/hpf (NONE-MOD) Urine Crystals None seen (NONE SEEN) Urine Bacteria Few/hpf (NONE-FEW) Urine Hyaline Casts None/lpf (NONE) Urine Granular Casts None seen (NONE SEEN) Urine Waxy Casts None seen (NONE SEEN) Urine Red Blood Cell Casts None seen (NONE SEEN) Urine White Blood Cell Casts None seen (NONE SEEN) Urine Mucus None seen (None Seen) Urine Trichomonas None seen (NONE SEEN) Urine Yeast None (NONE SEEN) Urinalysis Comment None Urine Culture Reflexed Not indicated Urine Random Creatinine 36mg/dL (16-392) Urine Random Total Protein 192mg/dL (0-15) Urine Protein/Creatinine Ratio 5.33 (0-200) [id number] Activity 72% [id number] Activity Interpretation Comment Uric Acid 10.1mg/dL (2.6-7.2) Iron Level 61ug/dL (35-150) Total Iron Binding Capacity 217ug/dL (250-450) Percent Iron Saturation 28%sat (15-50) Unsaturated Iron Binding 156.0ug/dL Rheumatoid Factor <10.0IU/mL (0.0-13.9) Anti-Nuclear Antibody Screen Positive (Negative) Anti-Nuclear Antibody Comment Comment (.) SS-A/Ro Antibody 3.1AI (0.0-0.9) SS-B/La Antibody <0.2AI (0.0-0.9) Sm (Ritter) IgG Antibody, Quant <0.2AI (0.0-0.9) GUN PROFILER Antibody <0.2AI (0.0-0.9) Anti-Double Strand DNA Antibody 6IU/mL (0-9) Anti-Glomerular Basement Memb Ab 3units (0-20) Complement C3 71mg/dL (82-167) Complement C4 28mg/dL (14-44) Hepatitis A IgM Antibody Negative (Negative) Hepatitis B Surface Antigen Negative (Negative) Hepatitis B Core IgM Antibody Negative (Negative) Hepatitis C Antibody <0.1s/co ratio (0.0-0.9) Hepatitis C Comment Comment (.) Lactate Dehydrogenase 353U/L (100-190) Test 12/29/16 02:55 12/29/16 15:16 12/30/16 03:25 12/30/16 09:24 Blood Smear Pathologist Review Hemoglobin A 97.3% (94.0-98.0) Hemoglobin A2 2.7% (0.7-3.1) Hemoglobin C 0.0% (0.0) Hemoglobin F () 0.0% (0.0-2.0) Hemoglobin S 0.0% (0.0) Variant Hemoglobin (.) Hemoglobin Electrophoresis Interp Comment (.) Hemoglobin Solubility Negative (Negative) Xxacdrr-1-Dtaxezayz Dehydrogenase 278 (146-376) G-6-PD Red Blood Cell Count 2.88s76P8/uL (3.77-5.28) Cold Agglutinin Titer Negative (Neg <1:32) Band Neutrophils % 0% (1-5) Phosphorus Level 6.0mg/dL (2.5-4.9) Vitamin B12 Level >1999pg/mL (211-946) Folate > 19.9ng/mL (>3.0) Copper Level 90ug/dL (72-166) Mycoplasma pneumoniae DNA (PCR) Negative (Negative) Parvovirus B19 DNA (PCR) Negativecopies/mL (Negative) Test 12/31/16 14:35 12/31/16 17:30 12/31/16 20:25 01/01/17 07:30 [facility] Specimen Peripheral blood (.) [facility] Submitting Diagnosis Comment (.) [facility] Red Blood Cells (.) [facility] Granulocytes Comment (.) [facility] Monocytes Comment (.) [facility] Viability 100% (.) [facility] Comment Comment (.) [facility] Antibodies Performed Comment (.) [facility] Flow Differential Percent Comment (.) [facility] Java Programmer Histogram (.) [facility] Interpretation Comment (.) [facility] Reviewed By Comment (.) Prothrombin Time 10.6sec (8.1-12.5) Prothromb Time International Ratio 0.99ratio Activated Partial Thromboplast Time 25.0sec (22.8-33.0) Fibrinogen 200mg/dL (157-380) D-Dimer 0.80mg/L FEU (<0.50) Magnesium Level 1.6mg/dL (1.6-2.6) Hold [place] Top Tube Received (Received) Reticulocyte Count,Calculated 1.6% (0.6-2.6) Haptoglobin < 10mg/dL (34-200) Procalcitonin 0.22ng/mL (0.00-0.08) Test 01/02/17 02:30 01/03/17 09:35 01/03/17 17:42 01/04/17 11:55 Erythrocyte Sedimentation Rate 27mm/hr (0-32) C-Reactive Protein 0.1mg/dL (0.0-0.5) Triglycerides Level 133mg/dL (0-149) Cholesterol Level 163mg/dL (100-199) LDL Cholesterol, Calculated 87.400mg/dL (0-119) VLDL Cholesterol 26.600mg/dL HDL Cholesterol 49mg/dL (>39) Cholesterol/HDL Ratio 3.33 (0.0-4.4) Rapid Plasma Reagin Non reactive (Non Reactive) Neutrophils (%) (Auto) 83.6% (40-74) Lymphocytes (%) (Auto) 9.4% (14-46) Monocytes (%) (Auto) 6.0% (4-12) Eosinophils (%) (Auto) 0% (0-5) Basophils (%) (Auto) 0.1% (0-3) White Blood Count 12.3th/mm3 (3.8-10.1) Red Blood Count 3.58mil/mm3 (3.90-5.20) Hemoglobin 10.4g/dL (12.0-15.6) Hematocrit 30.6% (35.0-46.0) Mean Corpuscular Volume 85.5fL (81-100) Mean Corpuscular Hemoglobin 29.1pg (27.0-35.0) Mean Corpuscular Hemoglobin Concent 34.0% (32.0-37.0) Red Cell Distribution Width 13.8% (12.3-15.4) Platelet Count 186bil/L (150-400) Sodium Level 131mEq/L (134-144) Potassium Level 4.8mEq/L (3.5-5.2) Chloride Level 91mEq/L (97-108) Carbon Dioxide Level 22mmol/L (18-29) Blood Urea Nitrogen 65mg/dL (6-20) Creatinine 4.19mg/dL (0.57-1.00) Estimat Glomerular Filtration Rate 19mL/min (>59) Glucose Level 154mg/dL (60-99) Calcium Level 8.6mg/dL (8.5-10.1) Total Bilirubin 0.2mg/dL (0.0-1.2) Aspartate Amino Transf (AST/SGOT) 24U/L (0-50) Alanine Aminotransferase (ALT/SGPT) 33U/L (0-32) Alkaline Phosphatase 66U/L (25-150) Total Protein 5.8g/dL (6.4-8.4) Albumin 3.5g/dL (3.4-5.0) Discharge Medications Discharge Medications Allopurinol (Allopurinol) 100 Mg Tablet 100 MG PO DAILY Prescribed by: HAKEEM HERRERA MD Amlodipine (Amlodipine) 5 Mg Tablet 5 MG PO DAILY Prescribed by: HAKEEM HERRERA MD Cholecalciferol (Vitamin D3) (Vitamin D) 1,000 Unit Tablet 1,000 UNIT PO DAILY Prescribed by: HAKEEM HERRERA MD Folic Acid (Folic Acid) 1 Mg Tablet 1 MG PO DAILY Prescribed by: HAKEEM HERRERA MD Prednisone (PredniSONE) 20 Mg Tablet 40 MG PO DAILY Prescribed by: HAKEEM HERRERA MD Vits #90/Iron Fum/FA ( Formula Tablet) 1 Each Tablet 1 EACH PO DAILY Prescribed by: HAKEEM HERRERA MD Followup Plan Disposition: Home [facility] on [facility] [address] Westbrook 01/11 at 8:40 AM Discharge Diet: Renal Diet Discharge Activity: No restrictions Patient Instructions [facility] tomorrow, 01/04 at 4 PM Follow-up Provider: Rafal Yan MD Follow-up with PCP in: 1 week Time spent 60 minutes Hakeem Herrera MD January 04, 2017 14:29
--- NOTE | 2017-01-04 14:54 | NUR ---
Discharge Pt discharged for transportation home by her . Pt's IV's dc'd intact and telemetry removed, tech notified. Pt's discharge instructions, follow up appointments and new medications were reviewed with parquet floor layer present. Pt was given discharge instructions and CareNotes in Chinese. All pt's questions were answered and pt voiced understanding. Pt's belongings were gathered for transport with pt. Pt was escorted off unit by JET WORKER to her 's vehicle.
[2017-01-08 16:08] LABS: Antiproteinase 3 (PR-3) Abs <3.5 U/mL (0.0-3.5); Perinuclear (P-ANCA) <1:20 titer (Neg:<1:20)
--- NOTE | 2017-01-09 16:20 | DRSVH ---
PROCEDURE: CV TUNNEL CATH PLCMNT 1. Sonographic guidance for venous access. 2. Conscious sedation for 36 minutes. 3. Right internal jugular vein tunneled hemodialysis catheter placement. 4. Fluoroscopic guidance for catheter placement. INDICATIONS: Renal failure TECHNIQUE: The indications, alternatives, benefits, risks, and complications of the procedure were e xplained to the patient and any family members present. Informed written consent was obtained and pl aced in the chart. The patient was brought to the angiography suite, and conscious sedation was admi nistered intravenously by custodial staff, while continuous cardiorespiratory monitoring was pe rformed. Maximum sterile barrier technique was employed per standard protocol, including hand hygiene, cap, ma sk, sterile gown and gloves, and 2% chlorhexidine. Sterile ultrasound probe cover was also utilized. 1% lidocaine was used for local anaesthesia. Under sonographic guidance, the right internal jugular vein was accessed with a Micropuncture set. An 0.035J wire was advanced into the vena cava. Subcuta neous tunnel was created within the right anterior chest wall, through which a 14.5 [place] double lum en tunneled hemodialysis catheter was advanced. Following sequential venotomy tract dilation, the ca theter was advanced through the peel-away sheath and the tip was placed at the cavoatrial junction. Peel-away sheath was removed. Adequate flow was obtained through both lumens of the catheter. The v enotomy was closed with Vicryl, and the catheter was fastened to the skin with Ticron. Both lumens w ere flushed with heparinized saline. The patient tolerated the procedure without difficulty and was in stable condition at the conclusion of the procedure. COMPARISON: None. FINDINGS: The right internal jugular vein is patent by ultrasound. Fluoroscopic imaging demonstrates tip of th e catheter at the cavoatrial junction. IMPRESSION: Right internal jugular vein tunneled hemodialysis catheter placement using sonographic and fluoroscop ic guidance. Dictated by: Cy Sharp M.D. on 01/09/2017 at 16:18 Approved by: Cy Sharp M.D. on 01/09/2017 at 16:18
[2017-01-11] MEDS ORDERED: [UNRECOGNIZED DRUG - CODE] PO (10:17)
[2017-01-11] MEDS ORDERED: LORA1TAB PO (10:17)
[2017-02-08] MEDS ORDERED: AMLO10TA3 PO (09:48)
== END 2017-01-04 14:00 | disposition home or self-care (01) | DRG 683 ==
LOC: SED 12:48 → MPC 18:48 → PCC 18:48 → UNDOADMIN 18:48
PROVIDERS: ADMIT Internal Medicine Infectious Disease; ATTEND Internal Medicine Infectious Disease
PROC: 02HV33Z Insertion of Infusion Device into Superior Vena Cava, Percutaneous Approach (ICD-10-PCS; 2016-12-29)
PROC: 5A1D00Z (ICD-10-PCS; 2016-12-29)
PROC: 0TB13ZX Excision of Left Kidney, Percutaneous Approach, Diagnostic (ICD-10-PCS; principal; 2016-12-30)
PROC: 5A1D00Z (ICD-10-PCS; 2016-12-30)
PROC: 30233N1 Transfusion of Nonautologous Red Blood Cells into Peripheral Vein, Percutaneous Approach (ICD-10-PCS; 2016-12-30)
PROC: 30233N1 Transfusion of Nonautologous Red Blood Cells into Peripheral Vein, Percutaneous Approach (ICD-10-PCS; 2016-12-31)
PROC: 5A1D00Z (ICD-10-PCS; 2017-01-01)
PROC: 5A1D00Z (ICD-10-PCS; 2017-01-03)
DX: N17.9 Acute kidney failure, unspecified (principal); E87.2 Acidosis; I13.11 Hypertensive heart and chronic kidney disease without heart failure, with stage 5 chronic kidney disease, or end stage renal disease; D59.1 Other autoimmune hemolytic anemias; N18.6 End stage renal disease; D63.1 Anemia in chronic kidney disease; N25.89 Other disorders resulting from impaired renal tubular function; R51 Headache; D69.6 Thrombocytopenia, unspecified; R31.9 Hematuria, unspecified; N25.81 Secondary hyperparathyroidism of renal origin; E79.0 Hyperuricemia without signs of inflammatory arthritis and tophaceous disease

== ENCOUNTER 2017-04-13 21:21 | Emergency (ER) | payer OTHER, MEDICAID ==
[~2017-04-13] VITALS: Ht 137.2 cm; Wt 47.7 kg
[~2017-04-13 21:21] MED LIST changes: +AMLO10TA3 PO; +CHOL10008 PO; -Ibuprofen PO; +PRE20 PO; +PREN-100 PO; -PREN-99 PO
--- NOTE | 2017-04-13 21:26 | ED.REPORT ---
HPI-Seizure Date of Service Apr 13, 2017 ED Provider: Mookie Paez MD Pt is a 22 year old female with a history of HTN and anemia who presents to the ED via EMS after a tonic-clonic seizure onset 15 minutes prior to arrival. She c /o upper back pain. She denies headache, fever, chest pain, nausea, SOB, and any other symptoms. Her family denies a history of seizures. The pt is on dialysis 3x a week, and she was at the end of her session today when her seizure started. Per EMS, her seizure lasted 1 minute. She rates her back pain as a 9/10. Nursing Notes Stated Complaint: SEIZURE Chief Complaint: Seizure Nursing Notes Reviewed: Yes Allergies: Coded Allergies: No Known Allergies (Verified Allergy, Unknown, 12/27/16) Scheduled Amlodipine (Amlodipine) 10 Mg Tablet 10 MG PO DAILY Cholecalciferol (Vitamin D3) (Vitamin D3) 1,000 Unit Tab.chew 1,000 UNIT PO DAILY Prednisone (PredniSONE) 20 Mg Tablet 40 MG PO DAILY Vits #90/Iron Fum/FA ( Formula Tablet) 1 Each Tablet 1 EACH PO DAILY General Time Seen by Provider: 21:20 Chief Complaint Chief Complaint: Seizure, generalized Hx Obtained From: Patient, EMS Arrived By: Ambulance Onset Occurred: Just prior to arrival Symptom Duration: 1 - 15 minutes (1) Location: : Back upper Quality: Painful Severity: Current: Pain level 9 out of 10 Severity: Maximum: Pain level 9 out of 10 Recent Healthcare: No recent doctor visit, No recent hospitalization Similar Sx Previous: No Past Medical History Past Medical History Hypertension Anemia Past Surgical History denies Smoking History Never Smoker Social History Alcohol Use: Denies alcohol use Drug Use: Denies drug use Other Social History: Occupation no work or school Ambulatory Status Independent Review of Systems Constitutional: Denies: Fever Respiratory: Denies: Shortness of breath Cardiovascular: Denies: Chest pain Musculoskeletal: Reports: Back pain Neurologic: Reports: Seizure, Denies: Headache Complete sys rev & neg: except as marked. GI: Denies: Nausea Physical Exam Initial Vital Signs Vital Signs (First) Date Time Temp Pulse Resp B/P Pulse Ox O2 Delivery O2 Flow Rate FiO2 04/13/17 21:47 36.9 98 20 141/99 98 Room Air Initial VS: Reviewed Head / Eyes: Atraumatic, Normocephalic Abdomen / GI: Soft, Non-tender Extremities: Vascular intact, Neuro intact Skin: Warm, Dry, No cyanosis Psychiatric: Mood/affect normal, Behavior normal General/Constitutional: Awake, Alert Neck: Atraumatic, Full range of motion Respiratory / Chest: Atraumatic, Breath sounds NL, Breath sounds = bilat [place] on right upper chest Cardiovascular: Regular rhythm, Heart sounds NL, No murmurs Heart Rate / Rhythm: Positive: Tachycardia Neurologic: CN II - XII intact Back: Full range of motion Reproducible right upper back tenderness, but no midline tenderness. Interpretation & Diagnostics Lab Results Interpretation Result Diagram: 04/13/17 [id number] Test 04/13/17 21:34 04/13/17 21:45 Urine Color Straw (YELLOW) Urine Appearance Slightly cloudy Urine pH 8.5 (5.0-8.0) Urine Specific [place] 1.010 (1.003-1.035) Urine Protein 100mg/dL (NEG,TRACE) Urine Glucose (UA) Negativemg/dL (NEGATIVE) Urine Ketones Negativemg/dL (NEGATIVE) Urine Occult Blood Small (NEGATIVE) Urine Nitrite Negative (NEGATIVE) Urine Bilirubin Negative (NEGATIVE) Urine Urobilinogen Normalmg/dL (NORMAL) Urine Leukocyte Esterase Small (NEGATIVE) Urine RBC 0-2/hpf (0-2) Urine WBC 0-5/hpf (0-5) Urine Epithelial Cells Moderate/hpf (NONE-MOD) Urine Crystals Amorphous phosphates Urine Bacteria Few/hpf (NONE-FEW) Urine Hyaline Casts None/lpf (NONE) Urine Granular Casts None seen (NONE SEEN) Urine Waxy Casts None seen (NONE SEEN) Urine Red Blood Cell Casts None seen (NONE SEEN) Urine White Blood Cell Casts None seen (NONE SEEN) Urine Mucus None seen (None Seen) Urine Trichomonas None seen (NONE SEEN) Urine Yeast None (NONE SEEN) Urinalysis Comment None White Blood Count 4.7th/mm3 (3.8-10.1) Red Blood Count 3.77mil/mm3 (3.90-5.20) Hemoglobin 12.0g/dL (12.0-15.6) Hematocrit 35.8% (35.0-46.0) Mean Corpuscular Volume 95.0fL (81-100) Mean Corpuscular Hemoglobin 31.8pg (27.0-35.0) Mean Corpuscular Hemoglobin Concent 33.5% (32.0-37.0) Red Cell Distribution Width 14.3% (12.3-15.4) Platelet Count 213bil/L (150-400) Neutrophils (%) (Auto) 52.1% (40-74) Lymphocytes (%) (Auto) 32.1% (14-46) Monocytes (%) (Auto) 10.8% (4-12) Eosinophils (%) (Auto) 4.2% (0-5) Basophils (%) (Auto) 0.2% (0-3) Sodium Level 133mEq/L (134-144) Potassium Level 3.7mEq/L (3.5-5.2) Chloride Level 90mEq/L (97-108) Carbon Dioxide Level 20mmol/L (18-29) Blood Urea Nitrogen 6mg/dL (6-20) Creatinine 1.73mg/dL (0.57-1.00) Estimat Glomerular Filtration Rate 53mL/min (>59) Glucose Level 81mg/dL (60-99) Calcium Level 8.6mg/dL (8.5-10.1) Total Bilirubin 0.2mg/dL (0.0-1.2) Aspartate Amino Transf (AST/SGOT) 23U/L (0-50) Alanine Aminotransferase (ALT/SGPT) 15U/L (0-32) Alkaline Phosphatase 76U/L (25-150) Total Protein 7.0g/dL (6.4-8.4) Albumin 4.3g/dL (3.4-5.0) Hold [place] Top Tube Received (Received) ECG Interpretation ECG Interpretation: Sinus rhythm with a rate of 96 Time: 21:45 Interpreted by: ED physician CT Head Interpretation IMPRESSION: No CT evidence of hemorrhage, mass, or acute infarct. 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 She remained stable with no recurrent seizures throughout many hours of observation here. Her labs are unremarkable. CT brain showed no acute pathology. I discussed with the on-call neurologist who recommended discharge home without any medications and outpatient follow-up with neurology and primary doctor for outpatient MRI and EEG. No driving until cleared by primary doctor or neurology. Source of Hx: Old records Re-Evaluation/Progress #1: Time of Eval: 23:31 Re-Evaluation/Progress Note: Pt rechecked. Updated pt. All questions addressed. Re-Evaluation/Progress #2: Time of Eval: 00:19 Re-Evaluation/Progress Note: Pt rechecked. Informed pt of plan for discharge. Pt understands and agrees with plan for discharge. F/U instructions and RTER warnings given. All questions addressed. Consultation : Referral / Consult Name: Viridiana Barton MD Consulted With: Neurology Call Returned at: 00:03 [place]: Agrees with eval, Agrees with plan Note: Discussed pt's case. Recommends out patient MRI, eeg, f/u with neurology and pcp. Advises against driving and taking medication until her f/u. Counseled Regarding: Diagnosis, Lab results, Need for follow-up, When/why to return to ED Discharge & Departure Impression: Primary Impression: Seizure Disposition: Home Discharge Condition All VS Reviewed: Yes Condition: Stable Patient Instructions: Generalized Tonic Clonic Seizures (ED) Additional Instructions: Her labs are reassuring. I spoke with the neurologist. She recommends out-patient MRI, EEG, following up with neurology and your primary care provider. Call the referral neurologist and your primary care provider tomorrow for a follow up appointment next week. Do not drive or take medication until your follow up appointment. Return to the Emergency Department for any new or worsening symptoms. [employer] laboratorios son tranquilizadores. He hablado con el neurlogo. Alexia recomienda paciente resonancia magntica, EEG , seguimiento con neurologa y dobbs proveedor de atencin primaria. Convocatoria el neurlogo de referencia y dobbs proveedor de cuidado primario ma leobardo jez marsha la prxima semana de seguimiento. No no unidad o josephine medicamento hasta dobbs marsha de seguimiento. Volver al Departamento de emergencia para cualquier sntoma nuevo o que empeora. Referrals: Myrtle Bee MD (PCP) Viridiana Barton MD Scribe Attestation Portions of this note were transcribed by Gypsy Powers. I, Dr. Paez personally performed the history, physical exam and medical decision-making; I reviewed and confirmed the accuracy of the information in the transcribed note. Signed by: Katarina Prado, 04/13/17. copies to: Viridiana Barton MD; Myrtle Bee MD, Ben M MD Apr 13, 2017 21:26 Gypsy Sorenson Apr 13, 2017 21:39
[2017-04-13] MEDS ORDERED: 0.9% Sodium Chloride 1,000 ML IV ONE (21:34)
[2017-04-13 21:47] VITALS: BP 141/99; PULSE 98; RESP 20; O2SAT 98
[2017-04-13 21:55] LABS: BASOPHILS % (AUTO) 0.2 % (0-3); EOSINOPHILS % (AUTO) 4.2 % (0-5); MONOCYTES % (AUTO) 10.8 % (4-12); Mean Corpuscular Hemoglobin 31.8 pg (27.0-35.0); NEUTROPHILS % (AUTO) 52.1 % (40-74); Platelet Count 213 bil/L (150-400)
[2017-04-13 22:51] VITALS: BP 138/92; PULSE 101; RESP 22; O2SAT 100
[2017-04-13 23:23] LABS: APPEARANCE,URINE SLIGHTLY CLOUDY (CLEAR,HAZY); COLOR,URINE STRAW (YELLOW); OCCULT BLOOD,URINE SMALL (NEGATIVE); PH,URINE 8.5 (5.0-8.0); UROBILINOGEN,URINE NORMAL (NORMAL)
[2017-04-14] MEDS ORDERED: HYDROcodone-APAP 10-325 mg PO ONE (00:10)
[2017-04-14 01:25] VITALS: BP 129/91; PULSE 88; RESP 16; O2SAT 97
--- NOTE | 2017-04-14 08:57 | DRSVH ---
PROCEDURE: CT BRAIN WITHOUT CONTRAST ([id number]) INDICATIONS: new onset seizure TECHNIQUE: Noncontrast 4.5 mm thick angled axial sections acquired from the foramen magnum to the vertex, with c oronal reformats. COMPARISON: None. FINDINGS: Image quality: Excellent. CSF spaces: Basal cisterns are patent. No extra-axial fluid collections. Ventricles are normal in size and shape. Brain: No midline shift. No intracranial masses or hemorrhage. Barrett-white matter interface is norm al. Skull and face: Calvarium and visualized facial bones are intact, without suspicious lesions. Sinuses: Visualized sinuses and mastoids are clear. IMPRESSION: Negative head CT. No significant discrepancy with the bench grinder radiology preliminary report. Dictated by: Ilya Foster M.D. on 04/14/2017 at 8:54 Approved by: Ilya Foster M.D. on 04/14/2017 at 8:55
--- NOTE | 2017-04-14 11:03 | DRSVH ---
PROCEDURE: CT ANGIO CHEST PULMONARY EMBOLISM ([id number]) INDICATIONS: chest pain/back pain TECHNIQUE: After the administration of intravenous contrast, 2 mm thick sections acquired from the pulmonary api unique to the posterior costophrenic angles. 3-dimensional maximum intensity projection (MIP) coronal a nd sagittal reformats were then acquired through the thorax. For radiation dose reduction, the follo wing was used: automated exposure control, adjustment of mA and/or kV according to patient size. COMPARISON: None. FINDINGS: Image quality: Excellent. Pulmonary arteries: Pulmonary arteries are normal in size, and demonstrate no intraluminal filling d efects to suggest central pulmonary embolism. Lungs and pleura: There is a 4 mm groundglass nodule in the right middle lobe (series 6 image 29). B ibasilar atelectasis. No pleural effusions or pneumothorax. Central and peripheral airways are north nt. Mediastinum: Heart size is normal, without pericardial effusion. No mediastinal or hilar adenopathy . Thoracic aorta is normal in caliber and enhancement. Esophagus is normal in caliber, without hiat al hernia. Bones and chest wall: No suspicious bony lesions. Ribs and thoracic spine appear intact throughout. Thyroid gland is normal. No axillary or supraclavicular adenopathy. Abdomen: Visualized upper abdominal solid organs appear normal in the early arterial phase of enhanc ement. IMPRESSION: 1. No evidence for central pulmonary embolism. 2. A 4 mm ground glass nodule in the right middle lobe, most likely infectious or inflammatory etiolo gy. Fleischner Society criteria for SUB-SOLID lung nodule followup. Solitary pure ground-glass nodules5 mm or lessNo followup needed. >5 mm3 mo follow-up CT to confirm persistence. Then annual CT for 3 years. Part-solid nodules3 mo follow-up CT to confirm persistence . If persistent with solid component <5 mm, annual CT for at least 3 years. If solid component is 5 mm or more, biopsy or surgical resection. Consider PET-CT for lesions > 10 mm. Multiple sub-solid nodulesPure ground glass nodules [address] at 2 and 4 years. Pure ground glass nodules >5 mm without dominant lesion. [address] to confirm persistence, then annual followup CT for at least 3 years. Dominant nodule(s) with part-solid or solid component. [address] to confirm persistence. If persistent, consider biopsy or surgical resection, diony if lesions have >5 m m solid component. Dictated by: Ilya Foster M.D. on 04/14/2017 at 10:59 Approved by: Ilya Foster M.D. on 04/14/2017 at 11:02
== END 2017-04-14 01:27 | disposition home or self-care (01) ==
LOC: EDBD 21:21 → SED 21:21
DX: R56.9 Unspecified convulsions (principal); I10 Essential (primary) hypertension; Z79.899 Other long term (current) drug therapy; Z99.2 Dependence on renal dialysis
CPT/HCPCS: 36415; 70450; 71275; 80053; 81001; 81025; 82948; 85025; 93005; 99285; Q9967